=== PATIENT | male | born 1955 | race Caucasian/White ===

== ENCOUNTER 2017-07-09 08:34 | Inpatient (IN) | payer MEDICARE ==
[~2017-07-09] VITALS: Ht 185.4 cm; Wt 90.0 kg
[~2017-07-09 08:34] MED LIST: BACT2OIN TOP; CHOLMIS5 XX; CYCL-36 PO; GLUCTAB PO; HYDR-3580 PO; LISI-363 PO
[2017-07-09 08:49] VITALS: BP 189/93; PULSE 72; RESP 18; TEMP 97.9; O2SAT 99
--- NOTE | 2017-07-09 08:49 | PD ---
HPI Chief Complaint: Left flank pain Time Seen by Provider: 08:49 Travel History International Travel<30 days: No Contact w/Intl Traveler<30days: No Traveled to known affect area: No History of Present Illness HPI 61-year-old male came to the emergency room with history of left flank pain that started at 730 this morning. Patient says the pain came out of nowhere. He has been nauseous and feels like he has to vomit but has not vomited yet. The pain radiates from the flank towards the left lower quadrant. He has never had this kind of pain before. No history of kidney stones in the past. No history of hematuria. Vital signs were relatively stable. FORMERLY [facility] Past Medical History Narrative Medical List of his past medical, surgical, social and family history is reviewed from the nursing note. Cancer: Yes (MELANOMA) Cardiac Catheterization: Yes Coronary Artery Disease: Yes Diabetes: Yes Diminished Hearing: No Diverticulitis: Yes Hypertension: Yes Immunizations Current: Yes Past Surgical History Abdominal Surgery: Yes Cardiac Surgery: Yes (cardiac stents) Coronary Stent: Yes (2) Joint Replacement: Yes Other Surgery: Yes (LEFT ANKLE PLATE/RIGHT HUMERUS ARTHOSCOPY/LYMPH NODE BX ( AXILLARY)) Social History Alcohol Use: Yes (occasionally) Tobacco Use: No Substance Use: No Allergies-Medications (Allergen,Severity, Reaction): Coded Allergies: iodine (Unverified Allergy, Severe, 07/09/17) naproxen (Unverified Allergy, Severe, 07/09/17) potassium iodide (Unverified Allergy, Severe, 07/09/17) povidone-iodine (Unverified Allergy, Severe, 07/09/17) shellfish derived (Unverified Allergy, Severe, 07/09/17) sodium iodide (Unverified Allergy, Severe, 07/09/17) sodium iodide (Unverified Allergy, Severe, 07/09/17) Comments List of his allergies reviewed from the nursing note. Reported Meds & Prescriptions Reported Meds & Active Scripts Active Reported Metformin (Metformin HCl) 500 Mg Tab 500 Mg PO DAILY With a meal Lisinopril 5 Mg Tab 5 Mg PO DAILY Narrative Medication List of his home medications reviewed from the nursing note. Review of Systems Except as stated in HPI: all other systems reviewed are Neg Genitourinary: Positive: Flank Pain Physical Exam Narrative GENERAL: Awake, alert, moderate distress SKIN: Focused skin assessment warm/dry. HEAD: Atraumatic. Normocephalic. EYES: Pupils equal and round. No scleral icterus. No injection or drainage. ENT: No nasal bleeding or discharge. Mucous membranes pink and moist. NECK: Trachea midline. No JVD. CARDIOVASCULAR: Regular rate and rhythm. No murmur appreciated. RESPIRATORY: No accessory muscle use. Clear to auscultation. Breath sounds equal bilaterally. GASTROINTESTINAL: Abdomen soft, non-tender, nondistended. Hepatic and splenic margins not palpable. MUSCULOSKELETAL: No obvious deformities. No clubbing. No cyanosis. No edema. NEUROLOGICAL: Awake and alert. No obvious cranial nerve deficits. Motor grossly within normal limits. Normal speech. PSYCHIATRIC: Appropriate mood and affect; insight and judgment normal. Data Data Last Documented VS Orders Orders Complete Blood Count With Diff (07/09/17 08:59) Comprehensive Metabolic Panel (07/09/17 08:59) Urinalysis - C+S If Indicated (07/09/17 08:59) Ct Abd/Pel W/O Iv Contrast (07/09/17 08:59) Ecg Monitoring (07/09/17 08:59) Iv Access Insert/Monitor (07/09/17 08:59) Ondansetron Inj (Zofran Inj) (07/09/17 09:00) Sodium Chloride 0.9% Flush (Ns Flush) (07/09/17 09:00) Sodium Chlor 0.9% 1000 Ml Inj (Ns 1000 M (07/09/17 08:59) Morphine Inj (Morphine Inj) (07/09/17 09:00) Morphine Inj (Morphine Inj) (07/09/17 10:45) Admit Order (Ed Use Only) (07/09/17 10:51) Labs Laboratory Tests Test 07/09/17 09:00 07/09/17 09:10 Urine Color YELLOW Urine Turbidity CLEAR Urine pH 5.5 Urine Specific [place] 1.026 Urine Protein 30 mg/dL Urine Glucose (UA) NEG mg/dL Urine Ketones NEG mg/dL Urine Occult Blood MOD Urine Nitrite NEG Urine Bilirubin NEG Urine Urobilinogen LESS THAN 2.0 MG/DL Urine Leukocyte Esterase NEG Urine RBC 21 /hpf Urine WBC 4 /hpf Urine Mucus FEW /lpf Microscopic Urinalysis Comment CULT NOT INDICATED White Blood Count 7.8 TH/MM3 Red Blood Count 5.36 MIL/MM3 Hemoglobin 16.6 GM/DL Hematocrit 47.1 % Mean Corpuscular Volume 88.0 FL Mean Corpuscular Hemoglobin 31.0 PG Mean Corpuscular Hemoglobin Concent 35.3 % Red Cell Distribution Width 13.3 % Platelet Count 312 TH/MM3 Mean Platelet Volume 7.5 FL Neutrophils (%) (Auto) 61.1 % Lymphocytes (%) (Auto) 24.9 % Monocytes (%) (Auto) 12.1 % Eosinophils (%) (Auto) 1.3 % Basophils (%) (Auto) 0.6 % Neutrophils # (Auto) 4.8 TH/MM3 Lymphocytes # (Auto) 1.9 TH/MM3 Monocytes # (Auto) 0.9 TH/MM3 Eosinophils # (Auto) 0.1 TH/MM3 Basophils # (Auto) 0.0 TH/MM3 CBC Comment DIFF FINAL Differential Comment Blood Urea Nitrogen 17 MG/DL Creatinine 1.34 MG/DL Random Glucose 154 MG/DL Total Protein 8.1 GM/DL Albumin 3.8 GM/DL Calcium Level 9.7 MG/DL Alkaline Phosphatase 54 U/L Aspartate Amino Transf (AST/SGOT) 25 U/L Alanine Aminotransferase (ALT/SGPT) 41 U/L Total Bilirubin 0.7 MG/DL Sodium Level 136 MEQ/L Potassium Level 4.0 MEQ/L Chloride Level 102 MEQ/L Carbon Dioxide Level 27.2 MEQ/L Anion Gap 7 MEQ/L Estimat Glomerular Filtration Rate 54 ML/MIN MDM Medical Decision Making Medical Screen Exam Complete: Yes Emergency Medical Condition: Yes Medical Record Reviewed: Yes Differential Diagnosis Ureteral colic, ureteral calculus, pyelonephritis Narrative Course 10:27 AM blood test results are back and within acceptable limits. UA shows some blood but otherwise negative. CT scan shows a 7 mm calculus in the left proximal ureter with moderate hydronephrosis and hydroureter. I put a call out for the urologist to discuss the case with him. 10:[address] Toribio to call back but I was told that he is in the operating room. At this point I decided to go ahead and admit the patient. The admitting team will consult urology. I discussed this with the patient and he is agreeable to it. His pain has been coming back and I ordered a second dose of pain medication. Procedures EKG Prior to Arrival: No Physician Communication Physician Communication Dr. Toribio Diagnosis Primary Impression: Ureteral colic Additional Impressions: Ureteral stone Hydronephrosis Qualified Codes: N13.2 - Hydronephrosis with renal and ureteral calculous obstruction Admitting Information Admitting Physician Requests: Observation Scripts Tamsulosin (Flomax) 0.4 Mg Cap 0.4 MG PO DAILY, #30 CAP . Prov: Maite Mendoza MD R1 07/10/17 Hydrocodone-Acetaminophen (Pala) 5 Mg-325 Mg Tab 1 TAB PO Q4H Y for PAIN, #10 TAB 0 Refills x Prov: Maite Mendoza MD R1 07/10/17 Loida Paz MD Jul 09, 2017 08:49
[2017-07-09] MEDS ORDERED: SODIUM CHLOR 0.9% 1000 ML INJ 1,000 ML IV ONE (08:59)
[2017-07-09] MEDS ORDERED: LISI-519 PO (08:59)
[2017-07-09] MEDS ORDERED: METF500T PO (08:59)
[2017-07-09] MEDS ORDERED: SODIUM CHLORIDE 0.9% FLUSH 10 ML FLUSH IVF PRN (09:00)
[2017-07-09] MEDS ORDERED: ONDANSETRON HCL 4 MG/2 ML VIAL IV PUSH ONE (09:00)
[2017-07-09] MEDS ORDERED: MORPHINE SULFATE 2 MG/ML INJ IV PUSH ONE ×2 (09:00→10:45)
[2017-07-09 09:45] LABS: AUTOMATED NEUTROPHIL # 4.8 TH/MM3 (1.8-7.7); BASOPHIL % 0.6 % (0.0-2.0); EOSINOPHIL # 0.1 TH/MM3 (0-0.4); EOSINOPHIL % 1.3 % (0.0-4.0); HEMATOCRIT 47.1 % (39.0-51.0); HEMOGLOBIN 16.6 GM/DL (13.0-17.0); LYMPH % 24.9 % (9.0-44.0); LYMPHOCYTE # 1.9 TH/MM3 (1.0-4.8); MEAN CORPUSCULAR HGB CONC 35.3 % (32.0-36.0); MEAN PLATELET VOLUME 7.5 FL (7.0-11.0); MONO % 12.1 % (0.0-8.0); MONOCYTE # 0.9 TH/MM3 (0-0.9); NEUT % 61.1 % (16.0-70.0); PLATELET COUNT 312 TH/MM3 (150-450); RED BLOOD COUNT 5.36 MIL/MM3 (4.50-5.90); RED CELL DISTRIBUTION WIDTH 13.3 % (11.6-17.2); WHITE BLOOD COUNT 7.8 TH/MM3 (4.0-11.0)
[2017-07-09 09:46] LABS: BILIRUBIN, URINE NEG (NEG); BLOOD, URINE MOD (NEG); GLUCOSE,URINE NEG (NEG); KETONE, URINE NEG (NEG); MUCUS URINE FEW /lpf (OCC); NITRITE,URINE NEG (NEG); PH, URINE 5.5 (5.0-8.5); URINE COLOR YELLOW (YELLW/STRAW); URINE LEUKOCYTE ESTERASE NEG (NEG)
[2017-07-09 09:54] VITALS: BP 140/67; PULSE 71; RESP 15; O2SAT 97
[2017-07-09 09:59] LABS: ALBUMIN 3.8 GM/DL (3.4-5.0); AST (GOT) 25 U/L (15-37); BICARBONATE 27.2 MEQ/L (21.0-32.0); BLOOD UREA NITROGEN 17 MG/DL (7-18); CALCIUM 9.7 MG/DL (8.5-10.1); CHLORIDE 102 MEQ/L (98-107); CREATININE 1.34 MG/DL (0.60-1.30); GLOMERULAR FILTRATION RATE 54 ML/MIN (>89); GLUCOSE,RANDOM 154 MG/DL (74-106); SODIUM (NA) 136 MEQ/L (136-145)
[2017-07-09 10:00] LABS: ALT (GPT) 41 U/L (12-78)
[2017-07-09 10:02] LABS: ALKALINE PHOSPHATASE 54 U/L (45-117); TOTAL BILIRUBIN ADULT 0.7 MG/DL (0.2-1.0); TOTAL PROTEIN 8.1 GM/DL (6.4-8.2)
--- NOTE | 2017-07-09 10:05 | RADRPT ---
EXAM DATE/TIME: 07/09/2017 09:15 [place] COMPARISON: No previous studies available for comparison. INDICATIONS : Left flank pain. ORAL CONTRAST: No oral contrast ingested. RADIATION DOSE: 6.97 CTDIvol (mGy) MEDICAL HISTORY : Cardiovascular disease. Diabetes mellitus type 2. Diverticulitis.Hypertension. SURGICAL HISTORY : None. ENCOUNTER: Initial ACUITY: 1 day PAIN SCALE: 7/10 LOCATION: Left flank TECHNIQUE: Volumetric scanning of the abdomen and pelvis was performed. Using automated exposure control and ad justment of the mA and/or kV according to patient size, radiation dose was kept as low as reasonably achievable to obtain optimal diagnostic quality images. DICOM format image data is available electro nically for review and comparison. FINDINGS: LOWER LUNGS: The visualized lower lungs are clear. LIVER: Homogeneous density without lesion. There is no dilation of the biliary tree. No calcified gallston es. SPLEEN: Normal size without lesion. PANCREAS: Within normal limits. KIDNEYS: There is a 7 mm calcified calculus in the proximal left ureter with resultant mild to moderate left-s ided hydroureteronephrosis. No additional radiopaque renal calculi are demonstrated. Right kidney is unremarkable. There are no contour deforming abnormalities. ADRENAL GLANDS: 1.2 cm left adrenal mass with low density consistent with adrenal adenoma. VASCULAR: There is no aortic aneurysm. BOWEL/MESENTERY: The stomach, small bowel, and colon demonstrate no acute abnormality. Surgical suture line at the rosalio cending sigmoid colon junction. There is no free intraperitoneal air or fluid. ABDOMINAL WALL: Postsurgical features of abdominal wall mesh repair. RETROPERITONEUM: There is no lymphadenopathy. BLADDER: No wall thickening or mass. REPRODUCTIVE: Within normal limits. INGUINAL: Small left inguinal fat containing hernia. MUSCULOSKELETAL: Within normal limits for patient age. CONCLUSION: 1. 7 mm calcified calculus in the proximal left ureter with resultant mild to moderate left-sided hyd roureteronephrosis. 2. 1.2 cm probable left adrenal adenoma. Cali Penaloza MD on July 09, 2017 at 9:32 Board Certified Radiologist. This report was verified electronically.
[2017-07-09] MEDS ORDERED: SODIUM CHLORIDE 0.9% FLUSH 10 ML FLUSH IV FLUSH SCH (11:00)
[2017-07-09] MEDS ORDERED: SODIUM CHLORIDE 0.9% FLUSH 10 ML FLUSH IV FLUSH PRN ×2 (11:00→13:15)
--- NOTE | 2017-07-09 12:39 | HHI.HP ---
HPI Service Family Medicine Primary Care Physician No Primary Care Physician Admission Diagnosis Ureteral calculus, ureteral colic, hydronephrosis Diagnoses: International Travel<30 Days: No Contact w/Intl Traveler<30days: No Known Affected Area: No History of Present Illness Mr. Allen is a 61 year-old male presenting to the ED with left flank pain. Patient states he woke up at 0700 with 10/10 sharp left-sided flank pain that radiated to his back. He describes his pain as the worst pain of his life and a pain that he has never experienced before. Currently the pain is now radiating down the front of his abdomen to the pelvis. Initially he thought it could have been related to an issue with his colon resection occur many years ago. He also endorsed nausea with this pain but denies any vomiting or diarrhea. Currently he cirrhosis pain at a 5/10 after receiving morphine in the ED. Since arriving in the ED has urinated once without blood, dysuria, or visible stone. He denies any history of UTI or kidney stones. Patient states he has had nothing to eat since 1000 last night. Otherwise he has no complaints and denies any fevers, chills, shortness of breath, chest pain, or calf tenderness. (Yasir Alvarez MD R2) Review of Systems Constitutional: DENIES: Fever, Chills Eyes: DENIES: Blurred vision, Double Vision Ears, nose, mouth, throat: DENIES: Throat pain, Running Nose Respiratory: DENIES: Cough, Shortness of breath Cardiovascular: DENIES: Chest pain, Syncope Gastrointestinal: COMPLAINS OF: Abdominal pain, Nausea, DENIES: Diarrhea, Vomiting Genitourinary: DENIES: Urinary frequency, Urgency, Hematuria, Dysuria, Testicular Pain Musculoskeletal: DENIES: Muscle aches Integumentary: DENIES: Rash Hematologic/lymphatic: DENIES: Lymphadenopathy Immunologic/allergic: DENIES: Urticaria Neurologic: DENIES: Headache Psychiatric: DENIES: Mood changes (Yasir Alvarez MD R2) Past Family Social History Past Medical History T2DM HTN Melanoma Diverticulitis CAD with HPLD Past Surgical History 2 cardiac stens C spine surgery R knee replacement Colectomy for diverticulitis R rotator cuff surgeries (Yasir Alvarez MD R2) Allergies: Coded Allergies: iodine (Unverified Allergy, Severe, 07/09/17) naproxen (Unverified Allergy, Severe, 07/09/17) potassium iodide (Unverified Allergy, Severe, 07/09/17) povidone-iodine (Unverified Allergy, Severe, 07/09/17) shellfish derived (Unverified Allergy, Severe, 07/09/17) sodium iodide (Unverified Allergy, Severe, 07/09/17) sodium iodide (Unverified Allergy, Severe, 07/09/17) Family History Father - unknown Mother - healthy living Son - healthy and living Social History 1 ppd for 30yr couple days a week 2-3 per night (Yasir Alvarez MD R2) Physical Exam Vital Signs Vital Signs Date Time Temp Pulse Resp B/P (MAP) Pulse Ox O2 Delivery O2 Flow Rate FiO2 07/09/17 09:54 71 15 140/67 (91) 97 Room Air 07/09/17 08:49 97.9 72 18 189/93 (125) 99 Physical Exam GENERAL: Well-nourished, well-developed male lying in bed in no acute distress. Patient's son and his significant other at bedside. SKIN: Warm and dry. No rash. HEENT: Atraumatic, normocephalic with extraocular motions intact. No rhinorrhea. No thyroid abnormality, lymphadenopathy, or jugulovenous distension appreciated. CARDIOVASCULAR: Regular rate and rhythm without obvious murmurs, gallops, or rubs. 2+ pulses in all four extremities. RESPIRATORY: Clear to auscultation bilaterally with no crackles, wheezes, or rhonchi. No increased work of breathing. GASTROINTESTINAL: Abdomen soft and nondistended with positive bowel sounds. Patient tender to the left lower quadrant. No masses appreciated. MUSCULOSKELETAL: No cyanosis or edema. No calf tenderness. Negative bilateral CVA tenderness NEURO/PSYCH: Afocal. Awake, alert, and oriented x3. Normal speech and judgement. Laboratory Laboratory Tests Test 07/09/17 09:00 07/09/17 09:10 Urine Color YELLOW Urine Turbidity CLEAR Urine pH 5.5 Urine Specific [place] 1.026 Urine Protein 30 Urine Glucose (UA) NEG Urine Ketones NEG Urine Occult Blood MOD Urine Nitrite NEG Urine Bilirubin NEG Urine Urobilinogen LESS THAN 2.0 Urine Leukocyte Esterase NEG Urine RBC 21 Urine WBC 4 Urine Mucus FEW Microscopic Urinalysis Comment CULT NOT INDICATED White Blood Count 7.8 Red Blood Count 5.36 Hemoglobin 16.6 Hematocrit 47.1 Mean Corpuscular Volume 88.0 Mean Corpuscular Hemoglobin 31.0 Mean Corpuscular Hemoglobin Concent 35.3 Red Cell Distribution Width 13.3 Platelet Count 312 Mean Platelet Volume 7.5 Neutrophils (%) (Auto) 61.1 Lymphocytes (%) (Auto) 24.9 Monocytes (%) (Auto) 12.1 Eosinophils (%) (Auto) 1.3 Basophils (%) (Auto) 0.6 Neutrophils # (Auto) 4.8 Lymphocytes # (Auto) 1.9 Monocytes # (Auto) 0.9 Eosinophils # (Auto) 0.1 Basophils # (Auto) 0.0 CBC Comment DIFF FINAL Differential Comment Blood Urea Nitrogen 17 Creatinine 1.34 Random Glucose 154 Total Protein 8.1 Albumin 3.8 Calcium Level 9.7 Alkaline Phosphatase 54 Aspartate Amino Transf (AST/SGOT) 25 Alanine Aminotransferase (ALT/SGPT) 41 Total Bilirubin 0.7 Sodium Level 136 Potassium Level 4.0 Chloride Level 102 Carbon Dioxide Level 27.2 Anion Gap 7 Estimat Glomerular Filtration Rate 54 (Yasir Alvarez MD R2) Result Diagram: 07/09/17 0910 07/09/17 0910 Imaging Last 72 hours Impressions Abdomen/Pelvis CT 07/09/17 0859 Signed Impressions: Service Date/Time: Sunday, July 09, 2017 09:15 - CONCLUSION: 1. 7 mm calcified calculus in the proximal left ureter with resultant mild to moderate left-sided hydroureteronephrosis. 2. 1.2 cm probable left adrenal adenoma. Cali Penaloza MD (Yasir Alvarez MD R2) Caprini VTE Risk Assessment Caprini VTE Risk Assessment: Mod/High Risk (score >= 2) Caprini Risk Assessment Model Point Value = 1 Point Value = 2 Point Value = 3 Point Value = 5 Age 41-60 Minor surgery BMI > 25 kg/m2 Swollen legs Varicose veins or History of unexplained or recurrent spontaneous Oral contraceptives or hormone replacement Sepsis (< 1 month) Serious lung disease, including pneumonia (< 1 month) Abnormal pulmonary function Acute myocardial infarction Congestive heart failure (< 1 month) History of inflammatory bowel disease Medical patient at bed rest Age 61-74 Arthroscopic surgery Major open surgery (> 45 min) Laparoscopic surgery (> 45 min) Malignancy Confined to bed (> 72 hours) Immobilizing plaster cast Central venous access Age >= 75 History of VTE Family history of VTE Factor V Leiden Prothrombin [id number] Lupus anticoagulant Anticardiolipin antibodies Elevated serum homocysteine Heparin-induced thrombocytopenia Other congenital or acquired thrombophilia Stroke (< 1 month) Elective arthroplasty Hip, pelvis, or leg fracture Acute spinal cord injury (< 1 month) Prophylaxis Regimen Total Risk Factor Score Risk Level Prophylaxis Regimen 0-1 Low Early ambulation 2 Moderate Order ONE of the following: *Sequential Compression Device (SCD) *Heparin 5000 units SQ BID 3-4 Higher Order ONE of the following medications: *Heparin 5000 units SQ TID *Enoxaparin/Lovenox 40 mg SQ daily (WT < 150 kg, CrCl > 30 mL/min) *Enoxaparin/Lovenox 30 mg SQ daily (WT < 150 kg, CrCl > 10-29 mL/min) *Enoxaparin/Lovenox 30 mg SQ BID (WT < 150 kg, CrCl > 30 mL/min) AND/OR *Sequential Compression Device (SCD) 5 or more Highest Order ONE of the following medications: *Heparin 5000 units SQ TID (Preferred with Epidurals) *Enoxaparin/Lovenox 40 mg SQ daily (WT < 150 kg, CrCl > 30 mL/min) *Enoxaparin/Lovenox 30 mg SQ daily (WT < 150 kg, CrCl > 10-29 mL/min) *Enoxaparin/Lovenox 30 mg SQ BID (WT < 150 kg, CrCl > 30 mL/min) AND *Sequential Compression Device (SCD) (Yasir Alvarez MD R2) Assessment and Plan Assessment and Plan Mr. Allen is a 61 y/o M resuming with left-sided flank pain and found to have a ureteral stone on imaging. Code Status DNR Discussed Condition With CAPO Nj MD, Dr., Dr. (Yasir Alvarez MD R2) Attending Attestation THIS CASE WAS DISCUSSED WITH THE RESIDENT PHYSICIANS. I HAVE REVIEWED THE RECORD AND AGREE WITH THE ABOVE NOTE AND PLAN OF CARE WAS DISCUSSED. I HAVE AUTHORIZED THE ORDER FOR ADMISSION TO AN IN-PATIENT STATUS. (Marcelino Olivas MD) Problem List: (1) Ureteral stone ICD Codes: N20.1 - Calculus of ureter Status: Acute Plan: -ABD/Pelvis CT: 7 mm proximal ureteral stone -IV fluids at 1.5 maintenance, normal saline at 190 mL/hour -Strain urine to evaluate for passage of stone particles -Tamsulosin 0.4 mg p.o. daily -Toradol as needed for pain, Morphine for breakthrough pain -Urinalysis with moderate blood and 21 RBC per high-power field, otherwise negative -Urology Consulted for possible ureteral stent, appreciate recommendations -Patient NPO since 07/08/17 at 1000 for possible cystoscopy and ureteral stent (2) Hydronephrosis ICD Codes: N13.30 - Unspecified hydronephrosis Status: Acute Plan: Plan as above (3) Acute renal insufficiency ICD Codes: N28.9 - Disorder of kidney and ureter, unspecified Status: Acute Plan: Likely secondary to obstruction from ureteral stone -IV fluids as above with normal saline at 190 mL/hour -Monitor daily BMP (4) Hypertension ICD Codes: I10 - Essential (primary) hypertension Status: Chronic Plan: -Continue home lisinopril (5) Type 2 diabetes mellitus ICD Codes: E11.9 - Type 2 diabetes mellitus without complications Status: Chronic Plan: -Hold home metformin -SSI per protocol (6) Nutrition, metabolism, and development symptoms ICD Codes: R63.8 - Other symptoms and signs concerning food and fluid intake Status: Acute Plan: -Fluids: NS at 190 ml/hr (1.5 MF) -Diet: NPO for possible procedure -Electrolytes: WNL, continue to monitor -Prophylaxis: Zofran as needed for N/V, constipation protocol, Tylenol as needed for fever, hydroxyzine as needed for insomnia, incentive spirometry, clonidine as needed for BP 180/110 (7) Surgical contraindication to deep vein thrombosis (DVT) prophylaxis ICD Codes: Z53.09 - Procedure and treatment not carried out because of other contraindication Status: Acute Plan: -Hold medical prophylaxis for possible procedure -SCDs (Yasir Alvarez MD R2) Physician Certification 2 Midnight Certification Type: Admission for Inpatient Services Order for Inpatient Services The services are ordered in accordance with Medicare regulations or non- Medicare payer requirements, as applicable. In the case of services not specified as inpatient-only, they are appropriately provided as inpatient services in accordance with the 2-midnight benchmark. Estimated LOS (days): 3 3 days is the estimated time the patient will need to remain in the hospital, assuming treatment plan goals are met and no additional complications. Post-Hospital Plan: Home (Yasir Alvarez MD R2) Problem Qualifiers (1) Hydronephrosis: Qualified Codes: N13.2 - Hydronephrosis with renal and ureteral calculous obstruction (2) Hypertension: Qualified Codes: I10 - Essential (primary) hypertension (3) Type 2 diabetes mellitus: Qualified Codes: E11.9 - Type 2 diabetes mellitus without complications Yasir Alvarez MD R2 Jul 09, 2017 12:39 Marcelino Olivas MD Jul 09, 2017 18:48
[2017-07-09] MEDS ORDERED: GLUCAGON 1 MG/ML VIAL OTHER PRN (12:45)
[2017-07-09] MEDS ORDERED: DEXTROSE 50% IN WATER 50 ML VIAL(D50) IV PUSH PRN (12:45)
[2017-07-09 12:54] VITALS: BP 168/81; PULSE 79; RESP 24; O2SAT 96
[2017-07-09] MEDS ORDERED: BISACODYL 10 MG SUPP RECTAL PRN (13:15)
[2017-07-09] MEDS ORDERED: SENNOSIDES 8.6 MG TAB PO PRN (13:15)
[2017-07-09] MEDS ORDERED: LACTULOSE SYRUP 20 GM/30 ML CUP PO PRN (13:15)
[2017-07-09] MEDS ORDERED: MAGNESIUM HYDROXIDE SUSP 30 ML CUP PO PRN (13:15)
[2017-07-09] MEDS ORDERED: KETOROLAC TROMETHAMINE 30 MG/ML (IVP) VIAL IV PUSH PRN (13:15)
[2017-07-09] MEDS ORDERED: ONDANSETRON HCL 4 MG/2 ML VIAL IVP PRN (13:15)
[2017-07-09] MEDS ORDERED: ACETAMINOPHEN 325 MG TAB PO PRN (13:15)
[2017-07-09] MEDS ORDERED: NALOXONE HCL 0.4 MG/ML AMP IV PUSH PRN (13:15)
[2017-07-09 13:37] VITALS: BP 158/96; PULSE 73; RESP 19; O2SAT 97
[2017-07-09] MEDS: TAMSULOSIN HCL 0.4 MG CAP PO SCH (14:15)
[2017-07-09] MEDS: SODIUM CHLOR 0.9% 1000 ML INJ 1,000 ML IV SCH ×3 (14:15→23:45)
[2017-07-09] MEDS: KETOROLAC TROMETHAMINE 30 MG/ML (IVP) VIAL IV PUSH PRN ×2 (14:15→23:42)
--- NOTE | 2017-07-09 14:59 | HHI.HP ---
HPI Service Family Medicine Primary Care Physician No Primary Care Physician Admission Diagnosis Ureteral calculus, ureteral colic, hydronephrosis Diagnoses: International Travel<30 Days: No Contact w/Intl Traveler<30days: No Known Affected Area: No History of Present Illness 61-year-old male presenting to the emergency department with left flank pain that started immediately upon waking up at 7 AM this morning. He describes it as a sharp, stabbing pain in his left CVA/flank that was constant. He states that he has never had pain like this before. He has noted that the pain has started to radiate down the lateral aspect of his abdomen and into his groin. He denies fevers or chills, he denies dysuria or gross hematuria, he denies overt abdominal pain. He does endorse nausea without vomiting. In the emergency department, imaging was performed that showed a 7 mm calcified calculus in the proximal left ureter with resulting mild to moderate left-sided hydronephrosis. He was given pain medication in the emergency department he states it decreased his pain from a 10/10 down to a 5/10. Review of Systems Constitutional: DENIES: Fever, Chills Endocrine: DENIES: Polyuria Respiratory: DENIES: Cough, Wheezing, Sputum production Cardiovascular: DENIES: Chest pain, Palpitations, Dyspnea on Exertion Gastrointestinal: COMPLAINS OF: Nausea, DENIES: Abdominal pain, Constipation, Diarrhea, Vomiting, Difficulty Swallowing Genitourinary: DENIES: Urinary frequency, Urinary incontinence, Urgency, Hematuria, Dysuria, Testicular Pain, Testicular Swelling Musculoskeletal: DENIES: Joint pain Past Family Social History Past Medical History T2DM HTN Melanoma Diverticulitis CAD with HPLD Past Surgical History 2 cardiac stens C spine surgery R knee replacement Colectomy for diverticulitis R rotator cuff surgeries Allergies: Coded Allergies: iodine (Unverified Allergy, Severe, 07/09/17) naproxen (Unverified Allergy, Severe, 07/09/17) potassium iodide (Unverified Allergy, Severe, 07/09/17) povidone-iodine (Unverified Allergy, Severe, 07/09/17) shellfish derived (Unverified Allergy, Severe, 07/09/17) sodium iodide (Unverified Allergy, Severe, 07/09/17) sodium iodide (Unverified Allergy, Severe, 07/09/17) Family History Father - unknown Mother - healthy living Son - healthy and living Social History 1 ppd for 30yr couple days a week 2-3 per night Physical Exam Vital Signs Vital Signs Date Time Temp Pulse Resp B/P (MAP) Pulse Ox O2 Delivery O2 Flow Rate FiO2 07/09/17 13:37 73 19 158/96 (116) 97 Room Air 07/09/17 12:54 79 24 168/81 (110) 96 Room Air 07/09/17 09:54 71 15 140/67 (91) 97 Room Air 07/09/17 08:49 97.9 72 18 189/93 (125) 99 Physical Exam GENERAL: This is a well-nourished, well-developed patient, in no apparent distress, lying in bed and appears comfortable. SKIN: No rashes, ecchymoses or lesions. Cool and dry. NECK: Trachea midline. No JVD or lymphadenopathy. CARDIOVASCULAR: Tachycardic with regular rhythm and without rubs/murmurs/gallop RESPIRATORY: Clear to auscultation. Breath sounds equal bilaterally. No wheezes , rales, or rhonchi. GASTROINTESTINAL: Abdomen soft, non-tender, nondistended. No obvious hepato- splenomegaly, or palpable masses. No guarding. Mildly tender to firm palpation in the left CVA without overt swelling. MUSCULOSKELETAL: Extremities without clubbing, cyanosis, or edema. NEUROLOGICAL: Awake and alert. Laboratory Laboratory Tests Test 07/09/17 09:00 07/09/17 09:10 Urine Color YELLOW Urine Turbidity CLEAR Urine pH 5.5 Urine Specific [place] 1.026 Urine Protein 30 Urine Glucose (UA) NEG Urine Ketones NEG Urine Occult Blood MOD Urine Nitrite NEG Urine Bilirubin NEG Urine Urobilinogen LESS THAN 2.0 Urine Leukocyte Esterase NEG Urine RBC 21 Urine WBC 4 Urine Mucus FEW Microscopic Urinalysis Comment CULT NOT INDICATED White Blood Count 7.8 Red Blood Count 5.36 Hemoglobin 16.6 Hematocrit 47.1 Mean Corpuscular Volume 88.0 Mean Corpuscular Hemoglobin 31.0 Mean Corpuscular Hemoglobin Concent 35.3 Red Cell Distribution Width 13.3 Platelet Count 312 Mean Platelet Volume 7.5 Neutrophils (%) (Auto) 61.1 Lymphocytes (%) (Auto) 24.9 Monocytes (%) (Auto) 12.1 Eosinophils (%) (Auto) 1.3 Basophils (%) (Auto) 0.6 Neutrophils # (Auto) 4.8 Lymphocytes # (Auto) 1.9 Monocytes # (Auto) 0.9 Eosinophils # (Auto) 0.1 Basophils # (Auto) 0.0 CBC Comment DIFF FINAL Differential Comment Blood Urea Nitrogen 17 Creatinine 1.34 Random Glucose 154 Total Protein 8.1 Albumin 3.8 Calcium Level 9.7 Alkaline Phosphatase 54 Aspartate Amino Transf (AST/SGOT) 25 Alanine Aminotransferase (ALT/SGPT) 41 Total Bilirubin 0.7 Sodium Level 136 Potassium Level 4.0 Chloride Level 102 Carbon Dioxide Level 27.2 Anion Gap 7 Estimat Glomerular Filtration Rate 54 Result Diagram: 07/09/1710 07/09/17 0910 Imaging Last 24 hours Impressions Abdomen/Pelvis CT 07/09/17 0859 Signed Impressions: Service Date/Time: Sunday, July 09, 2017 09:15 - CONCLUSION: 1. 7 mm calcified calculus in the proximal left ureter with resultant mild to moderate left-sided hydroureteronephrosis. 2. 1.2 cm probable left adrenal adenoma. MD Marisel Cortes VTE Risk Assessment Caprini VTE Risk Assessment: No/Low Risk (score <= 1) Caprini Risk Assessment Model Point Value = 1 Point Value = 2 Point Value = 3 Point Value = 5 Age 41-60 Minor surgery BMI > 25 kg/m2 Swollen legs Varicose veins or History of unexplained or recurrent spontaneous Oral contraceptives or hormone replacement Sepsis (< 1 month) Serious lung disease, including pneumonia (< 1 month) Abnormal pulmonary function Acute myocardial infarction Congestive heart failure (< 1 month) History of inflammatory bowel disease Medical patient at bed rest Age 61-74 Arthroscopic surgery Major open surgery (> 45 min) Laparoscopic surgery (> 45 min) Malignancy Confined to bed (> 72 hours) Immobilizing plaster cast Central venous access Age >= 75 History of VTE Family history of VTE Factor V Leiden Prothrombin [id number] Lupus anticoagulant Anticardiolipin antibodies Elevated serum homocysteine Heparin-induced thrombocytopenia Other congenital or acquired thrombophilia Stroke (< 1 month) Elective arthroplasty Hip, pelvis, or leg fracture Acute spinal cord injury (< 1 month) Prophylaxis Regimen Total Risk Factor Score Risk Level Prophylaxis Regimen 0-1 Low Early ambulation 2 Moderate Order ONE of the following: *Sequential Compression Device (SCD) *Heparin 5000 units SQ BID 3-4 Higher Order ONE of the following medications: *Heparin 5000 units SQ TID *Enoxaparin/Lovenox 40 mg SQ daily (WT < 150 kg, CrCl > 30 mL/min) *Enoxaparin/Lovenox 30 mg SQ daily (WT < 150 kg, CrCl > 10-29 mL/min) *Enoxaparin/Lovenox 30 mg SQ BID (WT < 150 kg, CrCl > 30 mL/min) AND/OR *Sequential Compression Device (SCD) 5 or more Highest Order ONE of the following medications: *Heparin 5000 units SQ TID (Preferred with Epidurals) *Enoxaparin/Lovenox 40 mg SQ daily (WT < 150 kg, CrCl > 30 mL/min) *Enoxaparin/Lovenox 30 mg SQ daily (WT < 150 kg, CrCl > 10-29 mL/min) *Enoxaparin/Lovenox 30 mg SQ BID (WT < 150 kg, CrCl > 30 mL/min) AND *Sequential Compression Device (SCD) Assessment and Plan Assessment and Plan 61-year-old male presenting to the emergency department with nephrolithiasis and urinary obstruction/hydronephrosis Problem List: (1) Hydronephrosis ICD Codes: N13.30 - Unspecified hydronephrosis Status: Acute Plan: 7 mm proximal ureteral stone noted on CT of the abdomen/pelvis Patient to be kept n.p.o. until urology evaluation for possible cystoscopy and ureteral stent IV fluids at 1.5 maintenance, normal saline at 190 mL/hour -Strain urine to evaluate for passage of stone particles Started on tamsulosin 0.4 mg p.o. daily Pain control: Toradol 30 mg every 6 hours as needed morphine 4 mg every 3 hours as needed for breakthrough pain (2) Ureteral stone ICD Codes: N20.1 - Calculus of ureter Status: Acute Plan: Urinalysis with moderate blood and 21 RBC per high-power field -No leukocyte esterase, nitrites, or elevated urine WBCs to indicate infection -We will hold off on antibiotics until evaluation by urology Treatment plan as above with urology consult and pain control (3) Acute renal insufficiency ICD Codes: N28.9 - Disorder of kidney and ureter, unspecified Status: Acute Plan: Secondary to obstruction from ureteral stone IV fluids as above with normal saline at 190 mL/hour -Monitor daily BMP Urology consult with for cystoscopy and possible ureteral stent placement (4) Type 2 diabetes mellitus ICD Codes: E11.9 - Type 2 diabetes mellitus without complications Status: Chronic Plan: Hold home metformin and cover with sliding scale insulin when patient has a diet (5) Hypertension ICD Codes: I10 - Essential (primary) hypertension Status: Chronic Plan: Continue home medications (6) Nutrition, metabolism, and development symptoms ICD Codes: R63.8 - Other symptoms and signs concerning food and fluid intake Plan: Patient n.p.o. until urology evaluation IV fluids as above Monitor electrolytes and replenish as needed Physician Certification 2 Midnight Certification Type: Admission for Inpatient Services Order for Inpatient Services The services are ordered in accordance with Medicare regulations or non- Medicare payer requirements, as applicable. In the case of services not specified as inpatient-only, they are appropriately provided as inpatient services in accordance with the 2-midnight benchmark. Estimated LOS (days): 2 2 days is the estimated time the patient will need to remain in the hospital, assuming treatment plan goals are met and no additional complications. Post-Hospital Plan: Not yet determined Problem Qualifiers (1) Hydronephrosis: Qualified Codes: N13.2 - Hydronephrosis with renal and ureteral calculous obstruction (2) Type 2 diabetes mellitus: Qualified Codes: E11.9 - Type 2 diabetes mellitus without complications (3) Hypertension: Qualified Codes: I10 - Essential (primary) hypertension Marcelino Olivas MD Jul 09, 2017 14:59
[2017-07-09] MEDS ORDERED: cloNIDine HCL 0.1 MG TAB PO PRN (16:30)
[2017-07-09 16:40] VITALS: BP 142/74; PULSE 61; RESP 18; TEMP 97.6; O2SAT 98
[2017-07-09] MEDS: MORPHINE SULFATE 4 MG/ML INJ IV PUSH PRN (16:40)
[2017-07-09] MEDS: INSULIN ASPART SUPPLEMENTAL SCALE SQ SCH ×2 (17:00→20:36)
--- NOTE | 2017-07-09 17:42 | MB ---
cc: DAVID SORENSON DATE OF CONSULTATION 07/09/2017 HISTORY OF THE PRESENT ILLNESS This is a pleasant 61-year-old male presented with left-sided flank pain. The patient on presentation to the ER underwent a CT scan demonstrating an 8-9 mm proximal left ureteral stone with mild to moderate hydronephrosis. He denies any prior history of stones or urinary tract infections. He denies any fevers or chills, chest pain or shortness of breath. PAST MEDICAL HISTORY His medical history includes: 1. Hypertension. 2. Diabetes. 3. Melanoma. 4. Diverticulitis. 5. Heart disease. 6. Hyperlipidemia. PAST SURGICAL HISTORY Notable for: 1. Cardiac stent insertion x2. 2. C-spine surgery. 3. Right knee replacement. 4. Colectomy for diverticulitis. 5. Right rotator cuff surgeries. ALLERGIES IODINE, NAPROXEN, POTASSIUM IODINE, SHELL FISH AND SODIUM IODINE. FAMILY HISTORY Denies any family history of prostate cancer. SOCIAL HISTORY One pack a day for 30 years and drinks two times a week two to three drinks. REVIEW OF SYSTEMS He denies chest pain, shortness of breath. Notes left-sided flank pain, abdominal pain. Denies diarrhea, constipation voiding problems, muscle aches, rashes, lymphadenopathy. Denies any headaches, mood changes, shortness of breath or chest pain. Denies throat pain, double vision, fever or chills. Remaining review of systems were reviewed were negative. PHYSICAL EXAMINATION VITAL SIGNS: His present vitals temperature is 97.9, heart rate 73, respiratory rate 19, 158/96. 97% on room air. GENERAL: He is a well-developed, well-nourished 61-year-old male in no acute distress. HEAD, EYES, EARS, NOSE, AND THROAT: Normocephalic, atraumatic. Pupils equal, round, regular, reactive to light. Extraocular movements intact. NECK: Supple. HEART: Regular rate and rhythm. LUNGS: Clear. ABDOMEN: Soft. Nontender, nondistended. There is left CVA tenderness noted. GENITOURINARY: Normal phallus. Testes are descended. EXTREMITIES: Showed no evidence of clubbing, cyanosis or edema. NEUROLOGIC: Cranial nerves II-XII are intact. PSYCHIATRIC: Generalized mood. LABORATORY DATA White count 7.8, hemoglobin 16.6, hematocrit 47.1, platelet count of 312. Sodium 136, potassium 4.0, chloride 102, CO2 27.2, BUN is 17. Creatinine is 1.34. Glucose of 154. Urinalysis shows moderate blood, 21 red cells, 4 white cells. IMAGING Again imaging study shows mild to moderate left-sided hydronephrosis with 8-9 mm proximal left ureteral stone. ASSESSMENT A 61-year-old male with a proximal left ureteral stone 8-9 mm in size with mild to moderate hydronephrosis. RECOMMENDATIONS Cystoscopy with left double-J stent insertion in the a.m. N.p.o. after midnight. Thank you for the consult and allowing me to participate in the care of this patient. David HARO/KK /4:54 PM /5:22 PM
[2017-07-09 20:00] VITALS: BP 132/65; PULSE 62; RESP 16; TEMP 96.6; O2SAT 97
[2017-07-09] MEDS: SODIUM CHLORIDE 0.9% FLUSH 10 ML FLUSH IV FLUSH SCH (20:23)
[2017-07-09] MEDS: DOCUSATE SODIUM 50 MG/SENNA 8.6 MG TAB PO SCH (20:23)
[2017-07-10 00:35] VITALS: BP 152/85; PULSE 60; RESP 16; TEMP 96; O2SAT 98
[2017-07-10] MEDS: MORPHINE SULFATE 4 MG/ML INJ IV PUSH PRN ×2 (00:36→08:02)
[2017-07-10] MEDS: SODIUM CHLOR 0.9% 1000 ML INJ 1,000 ML IV SCH ×2 (05:37→10:32)
[2017-07-10] MEDS: KETOROLAC TROMETHAMINE 30 MG/ML (IVP) VIAL IV PUSH PRN (06:03)
[2017-07-10 06:21] LABS: AUTOMATED NEUTROPHIL # 3.5 TH/MM3 (1.8-7.7); BASOPHIL % 0.5 % (0.0-2.0); EOSINOPHIL # 0.2 TH/MM3 (0-0.4); EOSINOPHIL % 2.3 % (0.0-4.0); HEMATOCRIT 39.6 % (39.0-51.0); HEMOGLOBIN 13.8 GM/DL (13.0-17.0); LYMPH % 36.7 % (9.0-44.0); LYMPHOCYTE # 2.6 TH/MM3 (1.0-4.8); MEAN CELL VOLUME 88.1 FL (80.0-100.0); MEAN CORPUSCULAR HEMOGLOBIN 30.8 PG (27.0-34.0); MEAN PLATELET VOLUME 7.3 FL (7.0-11.0); MONO % 11.6 % (0.0-8.0); MONOCYTE # 0.8 TH/MM3 (0-0.9); NEUT % 48.9 % (16.0-70.0); PLATELET COUNT 242 TH/MM3 (150-450); RED BLOOD COUNT 4.49 MIL/MM3 (4.50-5.90); RED CELL DISTRIBUTION WIDTH 12.9 % (11.6-17.2); WHITE BLOOD COUNT 7.1 TH/MM3 (4.0-11.0)
[2017-07-10 06:52] LABS: ALBUMIN 2.9 GM/DL (3.4-5.0); ALKALINE PHOSPHATASE 44 U/L (45-117); ALT (GPT) 29 U/L (12-78); AST (GOT) 14 U/L (15-37); BICARBONATE 28.2 MEQ/L (21.0-32.0); BLOOD UREA NITROGEN 16 MG/DL (7-18); CALCIUM 8.9 MG/DL (8.5-10.1); CHLORIDE 108 MEQ/L (98-107); GLOMERULAR FILTRATION RATE 76 ML/MIN (>89); GLUCOSE,RANDOM 105 MG/DL (74-106); SODIUM (NA) 141 MEQ/L (136-145); TOTAL BILIRUBIN ADULT 0.3 MG/DL (0.2-1.0); TOTAL PROTEIN 6.3 GM/DL (6.4-8.2)
[2017-07-10 08:00] VITALS: BP 137/81; PULSE 68; RESP 15; TEMP 97.1; O2SAT 98
[2017-07-10] MEDS: INSULIN ASPART SUPPLEMENTAL SCALE SQ SCH ×3 (08:00→17:00)
[2017-07-10] MEDS: SODIUM CHLORIDE 0.9% FLUSH 10 ML FLUSH IV FLUSH SCH (08:02)
[2017-07-10] MEDS: TAMSULOSIN HCL 0.4 MG CAP PO SCH (08:02)
[2017-07-10] MEDS: DOCUSATE SODIUM 50 MG/SENNA 8.6 MG TAB PO SCH (08:02)
[2017-07-10] MEDS ORDERED: LISINOPRIL 5 MG TAB PO SCH (09:00)
--- NOTE | 2017-07-10 10:54 | EKG ---
Date Performed: 07/10/2017 Time Performed: 07:06:10 PTAGE: 61 years EKG: SINUS BRADYCARDIA SEPTAL MYOCARDIAL INFARCTION , OF INDETERMINATE AGE INFERIOR MYOCARDIAL I NFARCTION , PROBABLY OLD ABNORMAL ECG NO PREVIOUS TRACING DOCTOR: Hubert Dhillon Interpretating Date/Time 07/10/2017 10:51:56
[2017-07-10 12:00] VITALS: BP 135/78; PULSE 65; RESP 16; TEMP 96.7; O2SAT 98
[2017-07-10] MEDS ORDERED: ePHEDrine/NS 25 MG/5 ML SYRINGE IV ONE (12:00)
[2017-07-10] MEDS ORDERED: DEXAMETHASONE SOD PHOS 4 MG/ML VIAL IV ONE (12:00)
[2017-07-10] MEDS ORDERED: KETOROLAC TROMETHAMINE 30 MG/ML (IVP) VIAL IV PUSH ONE (12:00)
[2017-07-10] MEDS ORDERED: PROPOFOL 200 MG/20 ML AMP IV ONE (12:00)
[2017-07-10] MEDS ORDERED: GLYCOPYRROLATE 1 MG/5 ML SYRINGE IV PUSH ONE (12:00)
[2017-07-10] MEDS ORDERED: ONDANSETRON HCL 4 MG/2 ML VIAL IV ONE (12:00)
[2017-07-10] MEDS ORDERED: PHENYLEPH/NS 1000 MCG/10 ML SYR IV ONE (12:00)
--- NOTE | 2017-07-10 12:01 | HHI.FPPN ---
Objective Vitals Vital Signs Date Time Temp Pulse Resp B/P (MAP) Pulse Ox O2 Delivery O2 Flow Rate FiO2 07/10/17 08:00 97.1 68 15 137/81 (99) 98 07/10/17 00:35 96.0 60 16 152/85 (107) 98 07/09/17 20:00 96.6 62 16 132/65 (87) 97 07/09/17 16:40 97.6 61 18 142/74 (96) 98 07/09/17 15:52 07/09/17 13:37 73 19 158/96 (116) 97 Room Air 07/09/17 12:54 79 24 168/81 (110) 96 Room Air I/O 07/09/17 07/09/17 07/09/17 07/10/17 07/10/17 07/10/17 06:59 14:59 22:59 06:59 14:59 22:59 Intake Total 1000 ml 1000 ml 1000 ml Output Total 750 ml 800 ml Balance 250 ml 1000 ml 200 ml Intake IV Total 1000 ml 1000 ml 1000 ml Output Urine Total 750 ml 800 ml # Voids 1 Result Diagram: 07/10/17 0604 07/10/17 0604 A/P Assessment and Plan Mr. Allen is a 61 y/o M resuming with left-sided flank pain and found to have a ureteral stone on imaging. Problem List: (1) Ureteral stone ICD Codes: N20.1 - Calculus of ureter Status: Acute Plan: -ABD/Pelvis CT: 7 mm proximal ureteral stone -IV fluids at 1.5 maintenance, normal saline at 190 mL/hour -Strain urine to evaluate for passage of stone particles -Tamsulosin 0.4 mg p.o. daily -Toradol as needed for pain, Morphine for breakthrough pain -Urinalysis with moderate blood and 21 RBC per high-power field, otherwise negative -Urology Consulted for possible ureteral stent, appreciate recommendations -Patient NPO since 07/08/17 at 1000 for possible cystoscopy and ureteral stent (2) Hydronephrosis ICD Codes: N13.30 - Unspecified hydronephrosis Status: Acute Plan: Plan as above (3) Acute renal insufficiency ICD Codes: N28.9 - Disorder of kidney and ureter, unspecified Status: Acute Plan: Likely secondary to obstruction from ureteral stone -IV fluids as above with normal saline at 190 mL/hour -Monitor daily BMP (4) Hypertension ICD Codes: I10 - Essential (primary) hypertension Status: Chronic Plan: -Continue home lisinopril (5) Type 2 diabetes mellitus ICD Codes: E11.9 - Type 2 diabetes mellitus without complications Status: Chronic Plan: -Hold home metformin -SSI per protocol (6) Nutrition, metabolism, and development symptoms ICD Codes: R63.8 - Other symptoms and signs concerning food and fluid intake Status: Acute Plan: -Fluids: NS at 190 ml/hr (1.5 MF) -Diet: NPO for possible procedure -Electrolytes: WNL, continue to monitor -Prophylaxis: Zofran as needed for N/V, constipation protocol, Tylenol as needed for fever, hydroxyzine as needed for insomnia, incentive spirometry, clonidine as needed for BP 180/110 (7) Surgical contraindication to deep vein thrombosis (DVT) prophylaxis ICD Codes: Z53.09 - Procedure and treatment not carried out because of other contraindication Status: Acute Plan: -Hold medical prophylaxis for possible procedure -SCDs Problem Qualifiers (1) Hydronephrosis: Qualified Codes: N13.2 - Hydronephrosis with renal and ureteral calculous obstruction (2) Hypertension: Qualified Codes: I10 - Essential (primary) hypertension (3) Type 2 diabetes mellitus: Qualified Codes: E11.9 - Type 2 diabetes mellitus without complications Maite Mendoza MD R1 Jul 10, 2017 12:01
--- NOTE | 2017-07-10 12:29 | HHI.FPPN ---
Subjective Remarks Patient seen and examined this morning by medical team. No acute events overnight. Patient states he is >75% better with Toradol and IV fluids. He is scheduled for his urethral stent placement today and hopes to be discharged afterward. Otherwise he has no complaints and denies any new fevers, chills, SOB , chest pain, NVD, ABD pain, or calf tenderness. (Yasir Alvarez MD R2) Objective Vitals Vital Signs Date Time Temp Pulse Resp B/P (MAP) Pulse Ox O2 Delivery O2 Flow Rate FiO2 07/10/17 12:00 96.7 65 16 135/78 (97) 98 07/10/17 08:00 97.1 68 15 137/81 (99) 98 07/10/17 00:35 96.0 60 16 152/85 (107) 98 07/09/17 20:00 96.6 62 16 132/65 (87) 97 07/09/17 16:40 97.6 61 18 142/74 (96) 98 07/09/17 15:52 07/09/17 13:37 73 19 158/96 (116) 97 Room Air 07/09/17 12:54 79 24 168/81 (110) 96 Room Air I/O 07/09/17 07/09/17 07/09/17 07/10/17 07/10/17 07/10/17 07:00 15:00 23:00 07:00 15:00 23:00 Intake Total 1000 ml 1000 ml 1000 ml Output Total 750 ml 800 ml Balance 250 ml 1000 ml 200 ml Intake IV Total 1000 ml 1000 ml 1000 ml Output Urine Total 750 ml 800 ml # Voids 1 (Yasir Alvarez MD R2) Result Diagram: 07/10/17 0604 07/10/17 0604 Objective Remarks GENERAL: Well-nourished, well-developed male sitting in his recliner in no acute distress. SKIN: Warm and dry. No rash. HEENT: Atraumatic, normocephalic with extraocular motions intact. No rhinorrhea. No visible LAD or JVD appreciated. CARDIOVASCULAR: Regular rate and rhythm without obvious murmurs, gallops, or rubs. 2+ pulses in all four extremities. RESPIRATORY: Clear to auscultation bilaterally with no crackles, wheezes, or rhonchi. No increased work of breathing. GASTROINTESTINAL: Abdomen soft and nondistended with positive bowel sounds. Patient tender to the left lower quadrant, improved from prior exam. No masses appreciated. MUSCULOSKELETAL: No cyanosis or edema. No calf tenderness. Negative bilateral CVA tenderness NEURO/PSYCH: Afocal. Awake, alert, and oriented x3. Normal speech and judgement. (Yasir Alvarez MD R2) A/P Assessment and Plan Mr. Allen is a 61 y/o M resuming with left-sided flank pain and found to have a ureteral stone on imaging. Discharge Planning Pending ureteral stent placement. Patient will need to tolerate PO diet as well as pass voiding trial. (Yasir Alvarez MD R2) Attending Attestation Pt. examined and case discussed with resident physicians. I have read the above note and agree with the assessment and plan as discussed with me. I was involved in all medical decision making for this patient. Marcelino Olivas MD (Marcelino Olivas MD) Problem List: (1) Ureteral stone ICD Codes: N20.1 - Calculus of ureter Status: Acute Plan: -ABD/Pelvis CT: 7 mm proximal ureteral stone -IV fluids at 1.5 maintenance, normal saline at 190 mL/hour -Strain urine to evaluate for passage of stone particles -Tamsulosin 0.4 mg p.o. daily -Toradol as needed for pain, Morphine for breakthrough pain -Urinalysis with moderate blood and 21 RBC per high-power field, otherwise negative -Urology Consulted for possible ureteral stent, appreciate recommendations -Patient NPO since 07/08/17 at 1000 for possible cystoscopy and ureteral stent (2) Hydronephrosis ICD Codes: N13.30 - Unspecified hydronephrosis Status: Acute Plan: Plan as above (3) Acute renal insufficiency ICD Codes: N28.9 - Disorder of kidney and ureter, unspecified Status: Resolved Plan: Likely secondary to obstruction from ureteral stone, resolved with aggressive IV fluid hydration -IV fluids as above with normal saline at 190 mL/hour -Monitor daily BMP (4) Hypertension ICD Codes: I10 - Essential (primary) hypertension Status: Chronic Plan: -Continue home lisinopril (5) Type 2 diabetes mellitus ICD Codes: E11.9 - Type 2 diabetes mellitus without complications Status: Chronic Plan: -Hold home metformin -SSI per protocol (6) Nutrition, metabolism, and development symptoms ICD Codes: R63.8 - Other symptoms and signs concerning food and fluid intake Status: Acute Plan: -Fluids: NS at 190 ml/hr (1.5 MF) -Diet: NPO for possible procedure, diabetic diet after procedure -Electrolytes: WNL, continue to monitor -Prophylaxis: Zofran as needed for N/V, constipation protocol, Tylenol as needed for fever, hydroxyzine as needed for insomnia, incentive spirometry, clonidine as needed for BP 180/110 (7) Surgical contraindication to deep vein thrombosis (DVT) prophylaxis ICD Codes: Z53.09 - Procedure and treatment not carried out because of other contraindication Status: Acute Plan: -Hold medical prophylaxis for possible procedure -SCDs (Yasir Alvarez MD R2) Problem Qualifiers (1) Hydronephrosis: Qualified Codes: N13.2 - Hydronephrosis with renal and ureteral calculous obstruction (2) Hypertension: Qualified Codes: I10 - Essential (primary) hypertension (3) Type 2 diabetes mellitus: Qualified Codes: E11.9 - Type 2 diabetes mellitus without complications Yasir Alvarez MD R2 Jul 10, 2017 12:29 Marcelino Olivas MD Jul 10, 2017 20:59
[2017-07-10] MEDS ORDERED: ceFAZolin INJ 1,000 MG VIAL ONE (13:55)
[2017-07-10] MEDS ORDERED: SODIUM CHLORIDE 0.9% INJ 100 ML ONE (13:58)
[2017-07-10] MEDS ORDERED: ceFAZolin 1,000 MG/NS 100 ML IV ONE ×2 (14:00)
--- NOTE | 2017-07-10 15:46 | PD.OP ---
Operative Report Date of Surgery: Jul 10, 2017 Preoperative Diagnosis: Left ureteral stone with hydronephrosis Postoperative Diagnosis: Same Procedure: Cystoscopy, left retrograde pyelogram, left double-J stent insertion Anesthesia: Gen. LMA Surgeon: Yosvany Toribio Shot Tube Machine Tender(s): None Resident Surgeon: None Operation and Findings: 61-year-old male who presented with left-sided flank pain yesterday. CT scan was performed in the emergency room demonstrating a 7 mm left proximal stone. Decision made to bring the patient to the operating room to undergo cystoscopy with left double-J stent insertion. Risk and benefits were discussed preoperatively, and he was willing to proceed. The patient was brought to the operating room identified by myself as Joseph Allen. He was placed in the dorsal lithotomy position, prepped and draped in usual sterile fashion, received preprocedure antibiotics, and general LMA anesthesia was administered. 22 Kosovan cystoscope was inserted in the bladder herman cystoscopy did not reveal any abnormalities. A 6 Kosovan Pollack catheter was inserted into the left ureteral orifice and retrograde pyleogram was performed. Stone was identified in the proximal left ureter. The stone was somewhat radiolucent. A 0.35 sensor wire was then inserted into the Pollack catheter and up into the kidney. A 6 Kosovan 24 cm left double-J stent was placed with a good curl in the kidney and the bladder. The bladder was evacuated and the tolerated the procedure well. He will follow-up in a few weeks for scheduling of extracorporeal shockwave lithotripsy to treat his stone. Yosvany Toribio DO Jul 10, 2017 15:46
[2017-07-10] MEDS ORDERED: MIDAZOLAM HCL 2 MG/2 ML VIAL ONE (16:05)
[2017-07-10] MEDS ORDERED: IOHEXOL 350 MG/ML 100 ML BTL (for RAD DIAG) OTHER ONE (16:07)
[2017-07-10] MEDS ORDERED: DO NOT ADM ANY ANTICOAGULANT DRUGS PRN (17:15)
--- NOTE | 2017-07-10 17:17 | HHI.DCPOC ---
Discharge Care Plan Diagnosis: (1) Ureteral stone (2) Hydronephrosis Goals to Promote Your Health * To prevent worsening of your condition and complications * To maintain your health at the optimal level Directions to Meet Your Goals Take your medications as prescribed Follow your dietary instruction Follow activity as directed Keep your appointments as scheduled Take your immunizations and boosters as scheduled If your symptoms worsen call your PCP, if no PCP go to Urgent Care Center or Emergency Room Smoking is Dangerous to Your Health. Avoid second hand smoke Call the 24-hour hour crisis hotline for domestic abuse at Yasir Alvarez MD R2 Jul 10, 2017 17:17
[2017-07-10] MEDS ORDERED: NORC5TAB PO (17:19)
[2017-07-10] MEDS ORDERED: TAMS5CAP PO (17:20)
[2017-07-10 17:25] VITALS: BP 152/74; PULSE 76; RESP 15; TEMP 96.1; O2SAT 97
[2017-07-10] MEDS ORDERED: ACETAMINOPHEN/HYDROcodone 325 MG/5 MG TAB PO ONE (18:00)
== END 2017-07-10 18:35 | disposition home or self-care (01) | DRG 694 ==
LOC: NEPE 08:34 → NEDA 10:52 → N07B 15:51
PROVIDERS: ADMIT Family Medicine; ATTEND Family Medicine
PROC: BT1F1ZZ Fluoroscopy of Left Kidney, Ureter and Bladder using Low Osmolar Contrast (ICD-10-PCS; 2017-07-10)
PROC: 0T778DZ Dilation of Left Ureter with Intraluminal Device, Via Natural or Artificial Opening Endoscopic (ICD-10-PCS; principal; 2017-07-10 14:21)
DX: N13.2 Hydronephrosis with renal and ureteral calculous obstruction (principal); I10 Essential (primary) hypertension; E11.9 Type 2 diabetes mellitus without complications; N28.9 Disorder of kidney and ureter, unspecified; I25.10 Atherosclerotic heart disease of native coronary artery without angina pectoris; F17.210 Nicotine dependence, cigarettes, uncomplicated; E78.5 Hyperlipidemia, unspecified; Z66 Do not resuscitate; Z79.84 Long term (current) use of oral hypoglycemic drugs; Z85.820 Personal history of malignant melanoma of skin; Z96.651 Presence of right artificial knee joint; Z95.5 Presence of coronary angioplasty implant and graft
CPT/HCPCS: 74176; 76000; 80053; 81001; 82948; 85025; 93005; 94150; 96361; 96374; 96375; 96376; J0690; J1100; J1885; J2250; J2270; J2370; J2405; J3010; J7030; Q9967

== ENCOUNTER → 2017-07-24 | Day surgery (SDC) | payer MEDICARE ==
[~2017-07-24] VITALS: Ht 185.4 cm; Wt 90.6 kg
[~2017-07-24] MED LIST changes: +ASPI1TAB57 PO; -BACT2OIN TOP; +CHLORHEXIDINE GLUCONATE 2 % 1 PACK (2 CLOTHS) TOPICAL PRN; -CHOLMIS5 XX; +COQ-50CA2 PO; -CYCL-36 PO; +DO NOT ADM ANY ANTICOAGULANT DRUGS PRN; -GLUCTAB PO; -HYDR-3580 PO; +LACTATED RINGER'S 1000 ML INJ 1,000 ML IV ONE; +LACTATED RINGER'S 1000 ML IV PRN; -LISI-363 PO; +LISI-519 PO; +METF500T PO; +METOPROLOL TARTRATE 25 MG TAB PO PRN; +MIDAZOLAM HCL 2 MG/2 ML VIAL ONE; +MORPHINE SULFATE 2 MG/ML INJ IV PRN; +NORC5TAB PO; +ONDANSETRON HCL 4 MG/2 ML VIAL IV PUSH PRN; +PROPOFOL 200 MG/20 ML AMP IV ONE; +SODIUM CHLORID 0.9% 500 ML IV PRN; +TAMS5CAP PO; +VITA1000 PO; +ceFAZolin 1,000 MG/NS 100 ML IV SCH; +oxyCODONE/ACETAMINOPHEN 5 MG/325 MG TAB PO PRN
--- NOTE | 2017-07-24 07:17 | RADRPT ---
EXAM DATE/TIME: 07/24/2017 06:27 [facility] COMPARISON: CT ABDOMEN & PELVIS W/O CONTRAST, July 09, 2017, 9:15. INDICATIONS : Pre op lithotripsy. MEDICAL HISTORY : None. SURGICAL HISTORY : None. ENCOUNTER: Initial ACUITY: 1 day PAIN SCORE: 0/10 LOCATION: Bilateral abdomen FINDINGS: 2 AP supine views of the abdomen and pelvis were obtained and demonstrate a left double pigtail urete ral stent catheter in place. There is a faint calcification along the proximal left ureter measuring approximately 4-5 mm in size. CONCLUSION: Small calcification along the proximal left ureter. Albert De Anda MD on July 24, 2017 at 7:14 Board Certified Radiologist. This report was verified electronically.
--- NOTE | 2017-07-24 09:20 | MP ---
cc: DAVID SORENSON DATE OF SURGERY 07/24/2017 PREOPERATIVE DIAGNOSIS Left ureteral stone. POSTOPERATIVE DIAGNOSIS Left ureteral stone. PROCEDURE Left extracorporeal shock wave lithotripsy. SURGEON Catarino. ANESTHESIA MAC. FLUIDS 500 cc crystalloid. ESTIMATED BLOOD LOSS No blood loss. COMPLICATIONS No complications. INDICATION FOR PROCEDURE This 61-year-old male presented to the office with findings of a 6 mm proximal left ureteral stone who had a prior cysto with stent insertion. Plan was to undergo a left extracorporeal shock wave lithotripsy. The risks and benefits were discussed preoperatively and he was willing to proceed. DETAILS OF PROCEDURE The patient was brought to the operating room, identified by myself as Joseph Allen. He was placed on the operating table in the supine position, received preprocedure antibiotics, and MAC anesthesia was administered. Under fluoroscopic imaging guidance the stone was localized and then ESWL therapy commenced. The patient received a total of 2250 shocks with good fragmentation of the stone. He did vomit during the procedure but his O2 sats remained in the 90% range. It did not appear that he aspirated. He was awoken and transferred to Recovery in stable condition. Good fragmentation was visualized under fluoroscopy. He will follow-up in the office in 2-4 weeks and will obtain a KUB x-ray prior. David ZAVALAT/BT /8:47 AM /8:57 AM
[2017-07-24 10:00] VITALS: BP 144/76; PULSE 64; RESP 18; TEMP 97.6; O2SAT 99
== END | disposition home or self-care (01) ==
LOC: HSDC 05:52
PROVIDERS: ATTEND Urology
DX: N20.1 Calculus of ureter (principal); E11.9 Type 2 diabetes mellitus without complications; I10 Essential (primary) hypertension; E78.5 Hyperlipidemia, unspecified; I51.9 Heart disease, unspecified; Z85.820 Personal history of malignant melanoma of skin
CPT/HCPCS: 00872; 50590; 74018; J0690; J2250; J7120

== ENCOUNTER 2017-08-16 05:35 | Emergency (ER) | payer MEDICARE ==
[~2017-08-16] VITALS: Ht 185.4 cm; Wt 90.0 kg
[~2017-08-16 05:35] MED LIST changes: -CHLORHEXIDINE GLUCONATE 2 % 1 PACK (2 CLOTHS) TOPICAL PRN; -DO NOT ADM ANY ANTICOAGULANT DRUGS PRN; -LACTATED RINGER'S 1000 ML INJ 1,000 ML IV ONE; -LACTATED RINGER'S 1000 ML IV PRN; -METOPROLOL TARTRATE 25 MG TAB PO PRN; -MIDAZOLAM HCL 2 MG/2 ML VIAL ONE; -MORPHINE SULFATE 2 MG/ML INJ IV PRN; -ONDANSETRON HCL 4 MG/2 ML VIAL IV PUSH PRN; -PROPOFOL 200 MG/20 ML AMP IV ONE; -SODIUM CHLORID 0.9% 500 ML IV PRN; -ceFAZolin 1,000 MG/NS 100 ML IV SCH; -oxyCODONE/ACETAMINOPHEN 5 MG/325 MG TAB PO PRN
[2017-08-16 05:45] VITALS: BP 151/97; PULSE 87; RESP 16; TEMP 98; O2SAT 96
[2017-08-16 05:58] VITALS: RESP 18; O2SAT 96
[2017-08-16 06:14] LABS: AUTOMATED NEUTROPHIL # 10.8 TH/MM3 (1.8-7.7); BASOPHIL # 0.1 TH/MM3 (0-0.2); BASOPHIL % 0.4 % (0.0-2.0); EOSINOPHIL # 0.1 TH/MM3 (0-0.4); EOSINOPHIL % 0.8 % (0.0-4.0); HEMATOCRIT 46.1 % (39.0-51.0); LYMPH % 13.9 % (9.0-44.0); MEAN CELL VOLUME 87.5 FL (80.0-100.0); MEAN CORPUSCULAR HEMOGLOBIN 30.3 PG (27.0-34.0); MEAN CORPUSCULAR HGB CONC 34.7 % (32.0-36.0); MEAN PLATELET VOLUME 7.2 FL (7.0-11.0); MONO % 8.1 % (0.0-8.0); MONOCYTE # 1.1 TH/MM3 (0-0.9); NEUT % 76.8 % (16.0-70.0); PLATELET COUNT 394 TH/MM3 (150-450); RED BLOOD COUNT 5.26 MIL/MM3 (4.50-5.90); RED CELL DISTRIBUTION WIDTH 13.2 % (11.6-17.2)
[2017-08-16 06:17] LABS: BILIRUBIN, URINE NEG (NEG); BLOOD, URINE MOD (NEG); GLUCOSE,URINE NEG (NEG); HYALINE CAST, URINE 2 /lpf (RARE); KETONE, URINE 10 mg/dL (NEG); MUCUS URINE FEW /lpf (OCC); NITRITE,URINE NEG (NEG); SQUAMOUS EPITHELIAL CELL URINE <1 /hpf (0-5); URINE COLOR YELLOW (YELLW/STRAW); URINE LEUKOCYTE ESTERASE SMALL (NEG)
[2017-08-16 06:48] LABS: ALKALINE PHOSPHATASE 55 U/L (45-117); TOTAL BILIRUBIN ADULT 0.5 MG/DL (0.2-1.0); TOTAL PROTEIN 8.2 GM/DL (6.4-8.2)
--- NOTE | 2017-08-16 07:12 | PD ---
HPI Chief Complaint: Abdominal Pain Time Seen by Provider: 06:56 Travel History International Travel<30 days: No Contact w/Intl Traveler<30days: No Traveled to known affect area: No History of Present Illness HPI The patient is a 61-year-old male who presents to the emergency department for generalized abdominal pain. The pain started last night after he ate a pot pie, the abdominal pain is crampy, moderate to severe, and not associated with any nausea, vomiting, or diarrhea. The patient does have a history of similar pain in the past secondary to diverticulitis, underwent previous partial colectomy in [place] in his 20s. The patient recently had a urological procedure by Dr. Toribio to break him a millimeter kidney stone, he states this pain is different. He does continue to have some hematuria from the previous kidney stone. He does have a previous history of partial colectomy and ventral hernia repair with mesh placement. He did have 1 alcoholic drink last night, but denies any history pancreatitis, biliary colic, or gallbladder disease. Symptoms are moderate. There are no current alleviating or exacerbating factors. He denies any associated fever, chills, or sweats. He does not have a primary physician. Last bowel movement was yesterday, normal, has not passed any flatus overnight. PFSH Past Medical History Cancer: Yes (melanoma) Cardiac Catheterization: Yes Cardiovascular Problems: Yes (STENOSIS) Chest Pain: Yes Coronary Artery Disease: Yes Diabetes: Yes (borderline) Patient Takes Glucophage: Yes Diminished Hearing: No Diverticulitis: Yes Endocrine: Yes Gastrointestinal Disorders: Yes (DIVERTICULITIS) Genitourinary: No Hepatitis: No Hiatal Hernia: No Hypertension: Yes Immune Disorder: No Kidney Stones: Yes (CURRENTLY) Musculoskeletal: Yes (OA) Neurologic: Yes (RUPTURED CERVICAL DISK) Psychiatric: No Reproductive: No Respiratory: No Immunizations Current: Yes Thyroid Disease: No Past Surgical History Abdominal Surgery: Yes (colon resection, hernia) AICD: No Body Medical Devices: HARDWARE IN NECK AND SHOULDER AND LEFT ANKLE Cardiac Surgery: Yes (stents) Coronary Stent: Yes (2) Joint Replacement: Yes (RIGHT KNEE) Neurologic Surgery: Yes (CERVICAL FUSION) Pacemaker: No Other Surgery: Yes (LEFT ANKLE PLATE/RIGHT HUMERUS ARTHOSCOPY/LYMPH NODE BX ( AXILLARY)) Social History Alcohol Use: Yes (occasionally) Tobacco Use: No Substance Use: No Allergies-Medications (Allergen,Severity, Reaction): Coded Allergies: iodine (Unverified Allergy, Severe, 08/16/17) naproxen (Unverified Allergy, Severe, 08/16/17) potassium iodide (Unverified Allergy, Severe, 08/16/17) povidone-iodine (Unverified Allergy, Severe, 08/16/17) shellfish derived (Unverified Allergy, Severe, 08/16/17) sodium iodide (Unverified Allergy, Severe, 08/16/17) sodium iodide (Unverified Allergy, Severe, 08/16/17) Reported Meds & Prescriptions Reported Meds & Active Scripts Active Reported Metformin (Metformin HCl) 500 Mg Tab 500 Mg PO DAILY With a meal Lisinopril 5 Mg Tab 5 Mg PO DAILY Review of Systems Except as stated in HPI: all other systems reviewed are Neg General / Constitutional: No: Fever, Chills Cardiovascular: No: Chest Pain or Discomfort Respiratory: No: Shortness of Breath Gastrointestinal: Positive: Abdominal Pain, Other (last bowel movement was yesterday), No: Nausea, Vomiting, Diarrhea, Constipation Genitourinary: Positive: Hematuria Physical Exam Narrative GENERAL: Awake, alert, pleasant 61-year-old male who appears his stated age and is in no acute respiratory distress. SKIN: Focused skin assessment warm/dry. HEAD: Atraumatic. Normocephalic. EYES: Pupils equal and round. No scleral icterus. No injection or drainage. ENT: No nasal bleeding or discharge. Mucous membranes pink and moist. NECK: Trachea midline. No JVD. CARDIOVASCULAR: Regular rate and rhythm. No murmur appreciated. RESPIRATORY: No accessory muscle use. Clear to auscultation. Breath sounds equal bilaterally. GASTROINTESTINAL: Abdomen soft, epigastric to right upper quadrant tenderness. Well-healed scar lower left abdomen. MUSCULOSKELETAL: No obvious deformities. No clubbing. No cyanosis. No edema. NEUROLOGICAL: Awake and alert. No obvious cranial nerve deficits. Motor grossly within normal limits. Normal speech. PSYCHIATRIC: Appropriate mood and affect; insight and judgment normal. Data Data Last Documented VS Vital Signs Date Time Temp Pulse Resp B/P (MAP) Pulse Ox O2 Delivery O2 Flow Rate FiO2 08/16/17 05:58 96 Room Air 08/16/17 05:58 18 08/16/17 05:45 98.0 87 Orders Orders Complete Blood Count With Diff (08/16/17 05:56) Comprehensive Metabolic Panel (08/16/17 05:56) Urinalysis - C+S If Indicated (08/16/17 05:56) Iv Access Insert/Monitor (08/16/17 05:56) Oxygen Administration (08/16/17 05:56) Oximetry (08/16/17 05:56) Lipase (08/16/17 05:56) Urine Culture (08/16/17 06:05) Ct Abd/Pel W/O Iv Contrast (08/16/17 ) Morphine Inj (Morphine Inj) (08/16/17 07:15) Ondansetron Inj (Zofran Inj) (08/16/17 07:15) Us Abdomen Gallbladder (08/16/17 ) Labs Laboratory Tests Test 08/16/17 06:00 08/16/17 06:05 White Blood Count 14.0 TH/MM3 Red Blood Count 5.26 MIL/MM3 Hemoglobin 16.0 GM/DL Hematocrit 46.1 % Mean Corpuscular Volume 87.5 FL Mean Corpuscular Hemoglobin 30.3 PG Mean Corpuscular Hemoglobin Concent 34.7 % Red Cell Distribution Width 13.2 % Platelet Count 394 TH/MM3 Mean Platelet Volume 7.2 FL Neutrophils (%) (Auto) 76.8 % Lymphocytes (%) (Auto) 13.9 % Monocytes (%) (Auto) 8.1 % Eosinophils (%) (Auto) 0.8 % Basophils (%) (Auto) 0.4 % Neutrophils # (Auto) 10.8 TH/MM3 Lymphocytes # (Auto) 2.0 TH/MM3 Monocytes # (Auto) 1.1 TH/MM3 Eosinophils # (Auto) 0.1 TH/MM3 Basophils # (Auto) 0.1 TH/MM3 CBC Comment DIFF FINAL Differential Comment Blood Urea Nitrogen 16 MG/DL Creatinine 1.16 MG/DL Random Glucose 154 MG/DL Total Protein 8.2 GM/DL Albumin 3.8 GM/DL Calcium Level 10.1 MG/DL Alkaline Phosphatase 55 U/L Aspartate Amino Transf (AST/SGOT) 29 U/L Alanine Aminotransferase (ALT/SGPT) 38 U/L Total Bilirubin 0.5 MG/DL Sodium Level 136 MEQ/L Potassium Level 4.4 MEQ/L Chloride Level 100 MEQ/L Carbon Dioxide Level 26.6 MEQ/L Anion Gap 9 MEQ/L Estimat Glomerular Filtration Rate 64 ML/MIN Lipase 102 U/L Urine Color YELLOW Urine Turbidity HAZY Urine pH 7.0 Urine Specific Morris 1.023 Urine Protein 100 mg/dL Urine Glucose (UA) NEG mg/dL Urine Ketones 10 mg/dL Urine Occult Blood MOD Urine Nitrite NEG Urine Bilirubin NEG Urine Urobilinogen 2.0 MG/DL Urine Leukocyte Esterase SMALL Urine RBC /hpf Urine WBC 18 /hpf Urine Squamous Epithelial Cells <1 /hpf Urine Hyaline Casts 2 /lpf Urine Mucus FEW /lpf Microscopic Urinalysis Comment CULTURE INDICATED MDM Medical Decision Making Medical Screen Exam Complete: Yes Emergency Medical Condition: Yes Medical Record Reviewed: Yes Interpretation(s) Laboratory Tests Test 08/16/17 06:00 08/16/17 06:05 White Blood Count 14.0 TH/MM3 Red Blood Count 5.26 MIL/MM3 Hemoglobin 16.0 GM/DL Hematocrit 46.1 % Mean Corpuscular Volume 87.5 FL Mean Corpuscular Hemoglobin 30.3 PG Mean Corpuscular Hemoglobin Concent 34.7 % Red Cell Distribution Width 13.2 % Platelet Count 394 TH/MM3 Mean Platelet Volume 7.2 FL Neutrophils (%) (Auto) 76.8 % Lymphocytes (%) (Auto) 13.9 % Monocytes (%) (Auto) 8.1 % Eosinophils (%) (Auto) 0.8 % Basophils (%) (Auto) 0.4 % Neutrophils # (Auto) 10.8 TH/MM3 Lymphocytes # (Auto) 2.0 TH/MM3 Monocytes # (Auto) 1.1 TH/MM3 Eosinophils # (Auto) 0.1 TH/MM3 Basophils # (Auto) 0.1 TH/MM3 CBC Comment DIFF FINAL Differential Comment Blood Urea Nitrogen 16 MG/DL Creatinine 1.16 MG/DL Random Glucose 154 MG/DL Total Protein 8.2 GM/DL Albumin 3.8 GM/DL Calcium Level 10.1 MG/DL Alkaline Phosphatase 55 U/L Aspartate Amino Transf (AST/SGOT) 29 U/L Alanine Aminotransferase (ALT/SGPT) 38 U/L Total Bilirubin 0.5 MG/DL Sodium Level 136 MEQ/L Potassium Level 4.4 MEQ/L Chloride Level 100 MEQ/L Carbon Dioxide Level 26.6 MEQ/L Anion Gap 9 MEQ/L Estimat Glomerular Filtration Rate 64 ML/MIN Lipase 102 U/L Urine Color YELLOW Urine Turbidity HAZY Urine pH 7.0 Urine Specific Morris 1.023 Urine Protein 100 mg/dL Urine Glucose (UA) NEG mg/dL Urine Ketones 10 mg/dL Urine Occult Blood MOD Urine Nitrite NEG Urine Bilirubin NEG Urine Urobilinogen 2.0 MG/DL Urine Leukocyte Esterase SMALL Urine RBC /hpf Urine WBC 18 /hpf Urine Squamous Epithelial Cells <1 /hpf Urine Hyaline Casts 2 /lpf Urine Mucus FEW /lpf Microscopic Urinalysis Comment CULTURE INDICATED Ultrasound gallbladder reveals mild fatty liver. No gallstones or biliary ductal dilatation. Nonobstructing calcification lower pole right kidney. Differential Diagnosis Differential diagnosis includes partial small bowel obstruction, pancreatitis, gastritis, peptic ulcer disease, biliary colic, choledocholithiasis, cholelithiasis, diverticulitis, viral syndrome. Narrative Course IV was established, labs are drawn and sent, and the patient was placed on cardiac telemetry monitoring and continuous pulse oximetry monitoring. The patient was initially seen by triage nurse, had labs sent. The patient was administered morphine, Zofran, and IV fluids. He will be kept nothing by mouth. CT of the abdomen and pelvis without contrast was ordered as she is allergic to iodine. The patient's white count is mildly elevated. Lipase and LFTs are unremarkable. UA does have innumerable RBCs and 18 WBCs, patient recently had urologic procedure for kidney stone. Ultrasound the gallbladder reveals mild fatty liver but no gallstones or biliary ductal dilatation. Nonobstructing calcification lower pole right kidney, no evidence of gallbladder disease. The patient is stable for outpatient follow-up. Patient Instructions: General Instructions Additional Instructions: Please provide a patient a copy of his CT results, ultrasound results, and lab results at discharge. Follow-up with her primary physician. Clear liquid diet and advance as tolerated. Return if symptoms worsen or progress. Med/Other Pt SpecificInfo: Prescription(s) given Scripts Hydrocodone-Acetaminophen ([place]) 5 Mg-325 Mg Tab 1 TAB PO Q6H Y for PAIN, #10 TAB 0 Refills Prov: Po Reyes MD 08/16/17 Dicyclomine (Bentyl) 10 Mg Cap 10 MG PO TID Y for Bowel Management, #10 CAP 0 Refills Prov: Po Reyes MD 08/16/17 Disposition: 01 DISCHARGE HOME Condition: Stable Po Reyes MD 16, 2018 07:12
[2017-08-16 07:14] LABS: ALBUMIN 3.8 GM/DL (3.4-5.0); ALT (GPT) 38 U/L (12-78); AST (GOT) 29 U/L (15-37); BICARBONATE 26.6 MEQ/L (21.0-32.0); BLOOD UREA NITROGEN 16 MG/DL (7-18); CALCIUM 10.1 MG/DL (8.5-10.1); CHLORIDE 100 MEQ/L (98-107); CREATININE 1.16 MG/DL (0.60-1.30); GLOMERULAR FILTRATION RATE 64 ML/MIN (>89); GLUCOSE,RANDOM 154 MG/DL (74-106); SODIUM (NA) 136 MEQ/L (136-145)
[2017-08-16] MEDS ORDERED: MORPHINE SULFATE 4 MG/ML INJ IV PUSH ONE (07:15)
[2017-08-16] MEDS ORDERED: ONDANSETRON HCL 4 MG/2 ML VIAL IV PUSH ONE (07:15)
--- NOTE | 2017-08-16 08:11 | RADRPT ---
EXAM DATE/TIME: 08/16/2017 07:52 [facility] COMPARISON: CT ABDOMEN & PELVIS W/O CONTRAST, July 09, 2017, 9:15. INDICATIONS : Mid abdominal pain. Evaluate for obstruction versus pancreatitis. ORAL CONTRAST: No oral contrast ingested. RADIATION DOSE: 7.64 CTDIvol (mGy) MEDICAL HISTORY : Diverticulitis. Hypertension. SURGICAL HISTORY : Colon resection. Coronary artery stent.Ureteral stent ENCOUNTER: Initial ACUITY: 1 day PAIN SCALE: 5/10 LOCATION: Bilateral upper quadrant TECHNIQUE: Volumetric scanning of the abdomen and pelvis was performed. Using automated exposure control and ad justment of the mA and/or kV according to patient size, radiation dose was kept as low as reasonably achievable to obtain optimal diagnostic quality images. DICOM format image data is available electro nically for review and comparison. FINDINGS: LOWER LUNGS: The visualized lower lungs are clear. LIVER: Minimal free fluid is identified along the anterolateral liver margin. Liver otherwise is normal appe arance without evidence of space I can find lesions or biliary duct dilatation. Gallbladder is unrema rkable without evidence of stones or significant wall thickening. SPLEEN: Normal size without lesion. PANCREAS: Within normal limits. There is no evidence of acute pancreatitis or mass. KIDNEYS: A left-sided internal ureteral stent is identified. The stent extends from the left renal pelvis to t he bladder. There is no evidence of hydronephrosis or hydroureter. Kidneys are otherwise unremarkable . ADRENAL GLANDS: Within normal limits. VASCULAR: There is no aortic aneurysm. BOWEL/MESENTERY: A few scattered colonic diverticula are noted. Postsurgical changes are identified in the distal desc ending colon. Intestinal tract is otherwise unremarkable without evidence of active inflammatory dise ase, ileus or free air. ABDOMINAL WALL: Within normal limits. RETROPERITONEUM: There is no lymphadenopathy. BLADDER: No wall thickening or mass. REPRODUCTIVE: Within normal limits. INGUINAL: There is no lymphadenopathy or hernia. MUSCULOSKELETAL: Within normal limits for patient age. CONCLUSION: 1. No evidence of acute diverticulitis or pancreatitis. 2. Left internal ureteral stent without evidence of obstructive uropathy. 3. Minimal free fluid along the anterolateral margin of the liver. 4. Postsurgical changes distal left colon. 5. Otherwise unremarkable evaluation. Eliel Nicholson MD on August 16, 2017 at 8:03 Board Certified Radiologist. This report was verified electronically.
--- NOTE | 2017-08-16 09:07 | RADRPT ---
EXAM DATE/TIME: 08/16/2017 08:23 [facility] COMPARISON: CT ABDOMEN & PELVIS W/O CONTRAST, August 16, 2017, 7:52. INDICATIONS : Right upper quadrant pain. MEDICAL HISTORY : Hypertension. Myocardial infarction. Coronary artery disease. Diverticulitis. Renal calculi. Border line diabetic. Osteoarthritis. PTSD. Melanoma. SURGICAL HISTORY : Fusion, cervical. Colon resection. Hernia repair. Right knee replacement. Right rotator cuff repair . Left ankle repair. Lymph node biopsy. Left ureteral stent. ENCOUNTER: Initial ACUITY: 1 day PAIN SCORE: 2/10 LOCATION: Right upper quadrant MEASUREMENTS: LIVER: 17.8 cm length COMMON DUCT: 5 mm RIGHT KIDNEY: 11.4 x 6.1 x 6.1 cm FINDINGS: Mild fatty liver slightly enlarged to 18 cm. Portal venous flow normal direction. No gallstones or bi liary ductal dilatation. Pancreas mildly heterogeneous. Right kidney demonstrates nonobstructing calcification in the lower pole. No hydronephrosis. CONCLUSION: 1. Mild fatty liver. No gallstones or biliary ductal dilatation. Nonobstructing calcification lower p ole right kidney. Roderick Casas MD on August 16, 2017 at 9:02 Board Certified Radiologist. This report was verified electronically.
[2017-08-16] MEDS ORDERED: NORC5TAB PO (09:17)
[2017-08-16] MEDS ORDERED: DICY10 PO (09:17)
[2017-08-16 09:49] VITALS: BP 145/89; PULSE 85; RESP 16; O2SAT 96
== END 2017-08-16 10:33 | disposition home or self-care (01) ==
LOC: NEPE 05:35
DX: R10.84 Generalized abdominal pain (principal); I10 Essential (primary) hypertension
CPT/HCPCS: 74176; 76705; 80053; 81001; 83690; 85025; 87086; 96374; 96375; 99284; J2270; J2405

== ENCOUNTER 2017-12-17 13:58 | Inpatient (IN) ==
[2017-12-17] MEDS ORDERED: ALTEPLASE DRIP IV.SIG ONE (14:32)
[2017-12-17] MEDS ORDERED: Alteplase Bolus 9 MG/9 ML Syringe IV.PUSH ONE (14:32)
--- NOTE | 2017-12-17 14:35 | CT ---
EXAM DATE: 12/17/2017 2:17 PM EDT AGE/SEX: 62 years / Male INDICATIONS: Stroke alert. Dizziness. Blurred vision. Headache. CLINICAL DATA: This is the patient's initial encounter. Patient reports that signs and symptoms have been present for 1 day and indicates a pain score of 0/10. MEDICAL/SURGICAL HISTORY: None. None. RADIATION DOSE: 56.36 CTDI (mGy) COMPARISON: [facility] – [place], [place] BRAIN W/O CONTRAST, 09/11/2012. . Report was called by [ ] TECHNIQUE: CT of the head without contrast. Using automated exposure control and adjustment of the mA and/or kV according to patient size, radiation dose was kept as low as reasonably achievable to ob tain optimal diagnostic quality images. DICOM format image data is available electronically for revi ew and comparison. FINDINGS: There is no evidence for intracranial hemorrhage, mass effect, mass lesions, or edema. The visualize d bony structures appear intact. Slight degree of brain atrophy is seen. Slight periventricular whit e matter changes are seen nonspecific mostly consistent with chronic small vessel ischemic changes. There are no signs of acute infarction for technique. CONCLUSION: Slight chronic small vessel ischemic and atrophic changes. Electronically signed by: Shaina Ward MD 12/17/2017 2:33 PM EDT
[2017-12-17 14:36] LABS: Baso # (Auto) 0.1 th/mm3 (0.0-0.2); Baso % (Auto) 0.5 % (0.0-2.0); Eos # (Auto) 0.2 th/mm3 (0.0-0.4); Eos % (Auto) 1.5 % (0.0-4.0); Mean Corpuscular HGB Conc 34.2 % (32.0-36.0); Mean Corpuscular Hemoglobin 29.1 pg (27.0-34.0); Mono # (Auto) 1.1 th/mm3 (0.0-0.9); Mono % (Auto) 10.9 % (0.0-8.0); Neut % (Auto) 68.1 % (16.0-70.0); Platelet Count 408 th/mm3 (150-450); Red Blood Count 5.17 mil/mm3 (4.50-5.90); Red Cell Distribution Width 13.1 % (11.6-17.2); White Blood Count 10.4 th/mm3 (4.0-11.0)
[2017-12-17 14:39] LABS: Activated Partial Thrombo Time 27.7 sec (24.3-30.1); Prothrombin Time 10.4 sec (9.8-11.6)
[2017-12-17 14:50] LABS: Creatine Kinase 105 U/L (39-308)
--- NOTE | 2017-12-17 15:05 | XR ---
EXAM DATE: 12/17/2017 2:56 PM EDT AGE/SEX: 62 years / Male INDICATIONS: . Stroke alert. CLINICAL DATA: This is the patient's initial encounter. Patient reports that signs and symptoms have been present for 1 day and indicates a pain score of 0/10. MEDICAL/SURGICAL HISTORY: . Diverticulitis. Hypertension. Fusion, cervical. Colon resection. Coronary artery stent.Ureteral stent COMPARISON: [facility] – [place], CHEST PA & LAT, 09/12/2012. . FINDINGS: A single AP view of the chest demonstrates the lungs to be symmetrically aerated without evidence of mass, infiltrate or effusion. The cardiomediastinal contours are unremarkable. Osseous structures a re intact. CONCLUSION: Negative examination. Electronically signed by: Cristofer Burr MD 12/17/2017 3:04 PM EDT
[2017-12-17] MEDS ORDERED: Bisacodyl 10 MG Supp RECTAL PRN (15:47)
[2017-12-17] MEDS: Sod Chloride 0.9% Inj 1,000 ML IV.CONT SCH (16:01)
--- NOTE | 2017-12-17 16:01 | ED ---
HPI General Chief Complaint: Stroke Alert Stated Complaint: Neuro symptoms Time Seen by Provider: 12/17/17 14:02 Source: patient Mode of arrival: wheelchair Limitations: no limitations History of Present Illness Onset (ago): minute(s) (90 minutes) Timing confirmed by: other Location: speech and other (Vision) History of same: Yes Severity: moderate Quality: constant Relieving factors: none Exacerbating factors: none Context: sudden onset On Anticoagulants: No Associated symptoms: headaches Treatments Prior to Arrival: none Related Data Home Medications Medication Instructions Recorded Confirmed aspirin 325 mg PO DAILY 12/17/17 12/17/17 lisinopril 5 mg PO DAILY 12/17/17 12/17/17 metformin 500 mg PO BID 12/17/17 12/17/17 Allergies Allergy/AdvReac Type Severity Reaction Status Date / Time iodine Allergy Severe Anaphylaxis Verified 12/17/17 14:21 naproxen Allergy Severe Anaphylaxis Verified 12/17/17 14:21 potassium iodide Allergy Severe Anaphylaxis Verified 12/17/17 14:21 povidone-iodine Allergy Severe Anaphylaxis Verified 12/17/17 14:21 shellfish derived Allergy Severe Anaphylaxis Verified 12/17/17 14:21 sodium iodide Allergy Severe Anaphylaxis Verified 12/17/17 14:21 sodium iodide Allergy Severe Anaphylaxis Verified 12/17/17 14:21 Review of Systems Except as stated in HPI: all other systems reviewed are negative Constitutional Denies chills and Denies fever(s) Eyes Reports blurry vision, Reports diplopia, Denies eye discharge, Denies loss of vision and Denies eye pain ENT Reports dizziness (Non-positional), Reports disequilibrium and Denies tinnitus Cardiovascular Denies chest pain, Denies syncope and Reports lightheadedness Respiratory Denies cough and Denies dyspnea Gastrointestinal Denies nausea and Denies vomiting Genitourinary Reports system reviewed and no additional complaints, except as docu Musculoskeletal Reports system reviewed and no additional complaints, except as docu Neurologic Reports as per HPI Psychiatric Denies anxiety and Denies memory loss Endocrine Denies polydipsia and Denies polyuria Hematologic/Lymphatic Denies easy bleeding and Denies easy bruising [facility] Medical History Medical History CAD (coronary artery disease) (Acute) Cervical vertebral fusion (Acute) Diabetes (Acute) Diverticulitis (Acute) Hypertension (Acute) Melanoma (Acute) Myocardial infarct (Acute) Rotator cuff arthropathy (Acute) Surgical History Surgical History History of arthroplasty of left ankle (Acute) History of colon resection (Acute) History of heart artery stent (Acute) History of hernia repair (Acute) History of knee surgery (Acute) Social History Social History Substance History: No History of Abuse Second Hand Smoke Exposure: Yes Smoking Status: Former smoker How Often Do You Have a Drink Containing Alcohol: 2 to 4 times a month Recent Travel in [facility] within the Last 8 Weeks: No Recent Out of Country Travel within the Last 8 Weeks: No Immunization History Tetanus Immunization: Unsure Hx Influenza Vaccine This Season: No Exam Narrative Exam Narrative: GENERAL: Well-developed well-nourished male in no acute respiratory distress. SKIN: Focused skin assessment warm/dry. HEAD: Atraumatic. Normocephalic. EYES: Pupils equal and round. Extraocular muscles were intact. Patient had subjective diplopia and blurry vision no scleral icterus. No injection or drainage. ENT: No nasal bleeding or discharge. Mucous membranes pink and moist. NECK: Trachea midline. Supple. CARDIOVASCULAR: Regular rate and rhythm. No murmur appreciated. RESPIRATORY: No accessory muscle use. Clear to auscultation. Breath sounds equal bilaterally. GASTROINTESTINAL: Abdomen soft, non-tender, nondistended. Hepatic and splenic margins not palpable. MUSCULOSKELETAL: No obvious deformities. No clubbing. No cyanosis. No edema. NEUROLOGICAL: Awake and alert. No obvious cranial nerve deficits other than the visual changes. Motor grossly within normal limits. Normal speech. Subjective dizziness. PSYCHIATRIC: Appropriate mood and affect; insight and judgment normal. Course Initial Documented Vital Signs Temperature 98.7 F 12/17/17 14:21 Pulse Rate 89 12/17/17 14:21 Respiratory Rate 16 12/17/17 14:21 Blood Pressure 148/77 H 12/17/17 14:21 Pulse Oximetry 99 12/17/17 14:21 Last Documented Vital Signs Temperature 98.7 F 12/17/17 14:21 Pulse Rate 82 12/17/17 14:27 Respiratory Rate 12 12/17/17 14:27 Blood Pressure 155/90 H 12/17/17 14:27 Pulse Oximetry 97 12/17/17 14:27 Critical Care Time Critical Care Time: Yes Total Critical Care Time: 60 Attestation: Aggregate critical care time was 60 minutes. Time to perform other separately billable procedures was not included in the critical care time. My time did not include minutes spent treating any other patients simultaneously or on activities that did not directly contribute to the patient's treatment. The services I provided to this patient were to treat and/or prevent clinically significant deterioration that could result in: I provided critical care services requiring my management, as noted below: Chart data review, documentation time, medication orders and management, vital sign assessments/reviewing monitor data, ordering and reviewing lab tests, ordering and interpreting/reviewing x-rays and diagnostic studies, care of the patient and discussion of the patient with the admitting physicians. NIH Stroke Scale NIH Stroke Scale Level of Consciousness: 0-Alert Orientation Questions: 0-Answers both correct Responds to Commands: 0-Both tasks correct Gaze Eye Movement: 0-Horizontal movement WNL Visual Cid: 2-Complete hemianopia Facial Movement: 0-Normal Motor Functions Arm LEFT: 0-No drift Motor Functions Arm RIGHT: 0-No drift Motor Functions Leg LEFT: 0-No drift Motor Functions Leg RIGHT: 0-No drift Limb Ataxia: 0-No ataxia Sensory Loss: 0-No sensory loss Best Language: 0-Normal Articulation: 0-Normal Extinction or Inattention Sensory: 0-Absent Total: 2 Quality Measure Queries Stroke Last date observed well: 12/17/17 Last time observed well: 12:00 Medical Decision Making MDM Narrative Medical decision making narrative: This is a 62-year-old male with history of hypertension, diabetes mellitus, presents here today after having sudden onset of visual changes, headache, dizziness that was non-positional. The patient had stuttering episodes over the last week. CT scan of the brain was negative for acute process. Patient was offered TPA with extensive explanation of the risks and benefits. The patient opted for the TPA. TPA was started at 1442. Shortly into his IV administration after the bolus, he had complete resolution of symptoms. He will be admitted to the intensive care unit. Case was discussed with Dr. Cleveland, director technical who will assume care. Case was also discussed with Dr. Meadows, on-call neurologist, who agreed with the plan. He will see the patient in consultation. Differential Diagnosis Differential Diagnosis: TIA versus CVA versus metabolic derangement versus atypical migraine Lab Data Result diagrams: 12/17/17 14:01 Lab Results 12/17/17 12/17/17 12/17/17 Range/Units 14:01 14:01 14: WBC 10.4 (4.0-11.0) th/mm3 RBC 5.17 (4.50-5.90) mil/mm3 Hgb 15.0 (13.0-17.0) gm/dL POC Hgb (Calc) 14.6 (13.0-17.0) g/dL Hct 44.0 (39.0-51.0) % POC Hct 43.0 (39-51.0) % MCV 85.0 (80.0-100.0) fL MCH 29.1 (27.0-34.0) pg MCHC 34.2 (32.0-36.0) % RDW 13.1 (11.6-17.2) % Plt Count 408 (150-450) th/mm3 MPV 7.0 (7.0-11.0) fL Neut % (Auto) 68.1 (16.0-70.0) % Lymph % (Auto) 19.0 (9.0-44.0) % [place] % (Auto) 10.9 H (0.0-8.0) % Eos % (Auto) 1.5 (0.0-4.0) % Baso % (Auto) 0.5 (0.0-2.0) % Neut # (Auto) 7.0 (1.8-7.7) th/mm3 Lymph # (Auto) 2.0 (1.0-4.8) th/mm3 [place] # (Auto) 1.1 H (0.0-0.9) th/mm3 Eos # (Auto) 0.2 (0.0-0.4) th/mm3 Baso # (Auto) 0.1 (0.0-0.2) th/mm3 WBC Differential . Differential Comment Auto diff final PT 10.4 (9.8-11.6) sec INR 1.0 Ratio APTT 27.7 (24.3-30.1) sec Fibrinogen 434 H (227-377) mg/dL POC Sodium 136 L (137-144) mmol/L POC Potassium 4.3 (3.6-5.0) mmol/L POC Chloride 101 L (102-111) mmol/L POC BUN 10 (5-21) mg/dL POC Creatinine 0.8 (0.6-1.3) mg/dL POC Glucose 215 H (68-110) mg/dL Total Creatine Kinase 105 (39-308) U/L Troponin I Less than 0.02 L (0.02-0.05) ng/mL Blood Type Blood Type Recheck Antibody Screen 12/17/17 Range/Units 14:01 WBC (4.0-11.0) th/mm3 RBC (4.50-5.90) mil/mm3 Hgb (13.0-17.0) gm/dL POC Hgb (Calc) (13.0-17.0) g/dL Hct (39.0-51.0) % POC Hct (39-51.0) % MCV (80.0-100.0) fL MCH (27.0-34.0) pg MCHC (32.0-36.0) % RDW (11.6-17.2) % Plt Count (150-450) th/mm3 MPV (7.0-11.0) fL Neut % (Auto) (16.0-70.0) % Lymph % (Auto) (9.0-44.0) % [place] % (Auto) (0.0-8.0) % Eos % (Auto) (0.0-4.0) % Baso % (Auto) (0.0-2.0) % Neut # (Auto) (1.8-7.7) th/mm3 Lymph # (Auto) (1.0-4.8) th/mm3 [place] # (Auto) (0.0-0.9) th/mm3 Eos # (Auto) (0.0-0.4) th/mm3 Baso # (Auto) (0.0-0.2) th/mm3 WBC Differential Differential Comment PT (9.8-11.6) sec INR Ratio APTT (24.3-30.1) sec Fibrinogen (227-377) mg/dL POC Sodium (137-144) mmol/L POC Potassium (3.6-5.0) mmol/L POC Chloride (102-111) mmol/L POC BUN (5-21) mg/dL POC Creatinine (0.6-1.3) mg/dL POC Glucose (68-110) mg/dL Total Creatine Kinase (39-308) U/L Troponin I (0.02-0.05) ng/mL Blood Type A Positive Blood Type Recheck Antibody Screen Negative Imaging Data Radiologist's impression: Chest X-Ray 12/17/17 14:11 CONCLUSION: Negative examination. Head CT 12/17/17 14:11 CONCLUSION: Slight chronic small vessel ischemic and atrophic changes. Discharge Plan Discharge Disposition Patient Disposition: 30 Still Patient Discharge Details Diagnosis: Acute ischemic stroke, Hypertension, Diabetes mellitus Physicians Team ED Provider: Jesus Manuel Dominguez Primary Care Provider: UNKNOWN, Attending Provider: Neela Cleveland Other Providers: Pancho Meadows Discharge Interventions Interventions: Vital Signs Last Done: 12/17/17 14:27 Status ED Status: Admitted Patient
--- NOTE | 2017-12-17 16:28 | P.HPCC ---
History of Present Illness Primary Care Physician: UNKNOWN Chief Complaint: Sudden onset dizziness and blurred vision History of Present Illness: Patient is a 62-year-old male with past medical history significant for coronary artery disease, cervical vertebral fusion, type 2 diabetes, hypertension, history of melanoma, past smoking. He developed sudden onset blurry vision, diplopia and dizziness. Had several episodes of similar symptoms the preceding week which lasted several minutes. This time symptoms persisted and patient presented to the ED. Initially blood pressure was 170/ 90. CT scan showed no acute findings. Dr. Meadows was consulted from neurology. Patient was deemed a good candidate for TPA. Patient received IV TPA with resolution of symptoms post. Critical care medicine was consulted to evaluate and admit the patient. I evaluated the patient in the ED. He does not appear to be in any discomfort lying flat on ER gurney. His symptoms consistent with posterior circulation/ vertebrobasilar CVA Inpatient Certification: I certify that the inpatient services were ordered in accordance with Medicare regulations governing the order. This includes certification that hospital inpatient services are reasonable and necessary and in the case of services not specified as inpatient-only under 42 CFR 419.22(n), that they are appropriately provided as inpatient services in accordance to with the 2-midnight benchmark under 43 CFR 412.3(e) Estimated Total Length of Stay (Days): 3 Plans for Post Hospital Care: Not yet determined Review of Systems other (as per HPI) [facility] - History History Provided By: Patient - Medical History Medical History: Medical History (Last Reviewed 12/17/17 @ 16:27 by Neela Cleveland MD) CAD (coronary artery disease) Cervical vertebral fusion Diabetes Diverticulitis Hypertension Melanoma Myocardial infarct Rotator cuff arthropathy - Surgical History Surgical History: Surgical History (Last Reviewed 12/17/17 @ 16:27 by Neela Cleveland MD) History of arthroplasty of left ankle History of colon resection History of heart artery stent History of hernia repair History of knee surgery - Tobacco History Second Hand Smoke Exposure: Yes Tobacco Use In Past 30 Days: No Smoking Status: Former smoker - Alcohol History How Often Do You Have a Drink Containing Alcohol: 2 to 4 times a month - Substance Use History Substance History: No History of Abuse - Travel History Recent Travel in the [place] Within the Last 8 Weeks: No Recent Travel Out of the Country Within the Last 8 Weeks: No - Immunization History Tetanus Immunization: Unsure Hx Influenza Vaccine This Season: No Medications and Allergies Active Medications: Active Medications Acetaminophen (Tylenol) 650 mg PO Q6H PRN PRN Reason: PAIN 1-10 AND/OR FEVER >101F Al Hydroxide/Mg Hydroxide (Milk Of Magnesia Liq) 30 ml PO Q12H PRN PRN Reason: Mild Constipation Albuterol (Duoneb Neb (Prn)) 1 ampul NEB Q2HR NEB PRN PRN Reason: WHEEZING Bisacodyl (Dulcolax Supp) 10 mg RECTAL DAILY PRN PRN Reason: SEVERE CONSITIPATION Chlorhexidine Gluconate (Chlorhexidine 2% Cloth) 3 pack TOPICAL DAILY@0400 CJ Stop: 12/23/17 03:59 Chlorhexidine Gluconate (Chlorhexidine 2% Cloth) 3 pack TOPICAL DAILY@0400 PRN PRN Reason: Extra cloth needed Stop: 12/23/17 03:59 Famotidine (Pepcid Pf Inj) 20 mg IV.PUSH Q12HR [facility] Sodium Chloride (Ns Inj) 1,000 mls @ 84 mls/hr IV.CONT .[id number] [facility] Last Admin: 12/17/17 16:01 Dose: 84 mls/hr Lactulose (Lactulose Liq) 30 ml PO DAILY PRN PRN Reason: SEVERE CONSITIPATION Senna/Docusate Sodium (Faye-Colace) 1 tab PO BID [facility] Sennosides (Senokot) 17.2 mg PO Q12H PRN PRN Reason: Moderate Constipation Sodium Chloride (Ns Flush) 2 ml IV.FLUSH BID [facility] Sodium Chloride (Ns Flush) 2 ml IV.FLUSH PRN PRN PRN Reason: FLUSH AFTER USING IV ACCESS Allergies Allergy/AdvReac Type Severity Reaction Status Date / Time iodine Allergy Severe Anaphylaxis Verified 12/17/17 14:21 naproxen Allergy Severe Anaphylaxis Verified 12/17/17 14:21 potassium iodide Allergy Severe Anaphylaxis Verified 12/17/17 14:21 povidone-iodine Allergy Severe Anaphylaxis Verified 12/17/17 14:21 shellfish derived Allergy Severe Anaphylaxis Verified 12/17/17 14:21 sodium iodide Allergy Severe Anaphylaxis Verified 12/17/17 14:21 sodium iodide Allergy Severe Anaphylaxis Verified 12/17/17 14:21 Home Medications Medication Instructions Recorded Confirmed Type aspirin 325 mg PO DAILY 12/17/17 12/17/17 History lisinopril 5 mg PO DAILY 12/17/17 12/17/17 History metformin 500 mg PO BID 12/17/17 12/17/17 History Results - Labs CBC & Chem 7: 12/17/17 14:01 Labs: Short CBC 12/17/17 Range/Units 14:01 WBC 10.4 (4.0-11.0) th/mm3 Hgb 15.0 (13.0-17.0) gm/dL Hct 44.0 (39.0-51.0) % Plt Count 408 (150-450) th/mm3 Cardiac Enzymes 12/17/17 Range/Units 14:01 Total Creatine Kinase 105 (39-308) U/L Troponin I Less than 0.02 L (0.02-0.05) ng/mL - Imaging Impressions Chest X-Ray 12/17/17 14:11 CONCLUSION: Negative examination. Head CT 12/17/17 14:11 CONCLUSION: Slight chronic small vessel ischemic and atrophic changes. Exam Vital signs: Vital Signs 12/17/17 14:21 12/17/17 14:27 Temperature 98.7 F Pulse Rate 89 82 Respiratory Rate 16 12 Blood Pressure 148/77 H 155/90 H Pulse Oximetry 99 97 Intake & Output 12/16/17 12/17/17 12/17/17 18:59 06:59 18:59 Intake Total 72 / 72 Balance 72 / 72 Weight 89.1 kg Intake: IV 72 / 72 Activase Drip 72 MG In Bag/ 72 / 72 Syringe 1 EACH @ 72 mls/hr IV. SIG ONCE ONE Rx#:[id number] Narrative: Exam Narrative: GENERAL: Well-developed well-nourished male in no acute respiratory distress, lying in [facility]. SKIN: warm/dry. HEAD: Atraumatic. Normocephalic. EYES: Pupils equal and round. Extraocular muscles were intact. No injection or drainage. ENT: No nasal bleeding or discharge. NECK: Trachea midline. Supple. No carotid bruit. CARDIOVASCULAR: Regular rate and rhythm. No murmur appreciated. RESPIRATORY: No accessory muscle use. Clear to auscultation. Breath sounds equal bilaterally. GASTROINTESTINAL: Abdomen soft, non-tender, nondistended. MUSCULOSKELETAL: No obvious deformities. No clubbing. No cyanosis. No edema. NEUROLOGICAL: Awake and alert. No obvious cranial nerve deficits. Motor grossly within normal limits. Normal speech. Septic Shock Reassessment Septic shock perfusion: reassessment completed Caprini VTE Risk Assessment Caprini VTE Risk Assessment: Moderate/High Risk (score >= 2) Caprini Risk Assessment Model: Point Value = 1 Point Value = 2 Point Value = 3 Point Value = 5 Age 41-60 Minor surgery BMI > 25 kg/m2 Swollen legs Varicose veins or History of unexplained or recurrent spontaneous Oral contraceptives or hormone replacement Sepsis (< 1 month) Serious lung disease, including pneumonia (< 1 month) Abnormal pulmonary function Acute myocardial infarction Congestive heart failure (< 1 month) History of inflammatory bowel disease Medical patient at bed rest Age 61-74 Arthroscopic surgery Major open surgery (> 45 min) Laparoscopic surgery (> 45 min) Malignancy Confined to bed (> 72 hours) Immobilizing plaster cast Central venous access Age >= 75 History of VTE Family history of VTE Factor V Leiden Prothrombin [id number] Lupus anticoagulant Anticardiolipin antibodies Elevated serum homocysteine Heparin-induced thrombocytopenia Other congenital or acquired thrombophilia Stroke (< 1 month) Elective arthroplasty Hip, pelvis, or leg fracture Acute spinal cord injury (< 1 month) Prophylaxis Regimen: Total Risk Factor Score Risk Level Prophylaxis Regimen 0-1 Low Early ambulation 2 Moderate Order ONE of the following: *Sequential Compression Device (SCD) *Heparin 5000 units SQ BID 3-4 Higher Order ONE of the following medications: *Heparin 5000 units SQ TID *Enoxaparin/Lovenox 40 mg SQ daily (WT < 150 kg, CrCl > 30 mL/min) *Enoxaparin/Lovenox 30 mg SQ daily (WT < 150 kg, CrCl > 10-29 mL/min) *Enoxaparin/Lovenox 30 mg SQ BID (WT < 150 kg, CrCl > 30 mL/min) AND/OR *Sequential Compression Device (SCD) 5 or more Highest Order ONE of the following medications: *Heparin 5000 units SQ TID (Preferred with Epidurals) *Enoxaparin/Lovenox 40 mg SQ daily (WT < 150 kg, CrCl > 30 mL/min) *Enoxaparin/Lovenox 30 mg SQ daily (WT < 150 kg, CrCl > 10-29 mL/min) *Enoxaparin/Lovenox 30 mg SQ BID (WT < 150 kg, CrCl > 30 mL/min) AND *Sequential Compression Device (SCD) Assessment and Plan - Assessment and Plan Plan: ASSESSMENT: Acute vertebrobasilar stroke versus TIA Uncontrolled hypertension Coronary artery disease status post PCI/stent Type 2 diabetes History of melanoma PLAN: NEURO: -Status post TPA administration, follow post TPA protocol -Restart aspirin in 24 hours -Stroke workup including 2D echo, MRI MRA brain and neck, TSH, B12, lipid profile -Neurology Dr. Meadows -CT head in 24 hours RESP: -Nasal cannula oxygen to keep oxygen saturation more than 90% -DuoNeb every 6 hours as needed CV: -Normal saline IV fluids -Keep blood pressure less than 185/10 per TPA protocol -Resume aspirin after 24 hours -Cardiology Dr. Calles GI: -Heart healthy diet when cleared by neurology -IV famotidine : -Monitor renal function closely. ID: -No evidence of infection at this time HEME: -Monitor CBC, CMP ENDO: -Electrolyte replacement per protocol -Sliding scale insulin PROPH: -Bilateral lower extremity SCDs. No chemical DVT prophylaxis for 24 hours LINES: -Utilize peripheral IVs, central line if needed Level 3 Hospitalist consulted to assume care 12/19/2017 Code Status: Full Discussed Condition With: Dr. Dominguez
--- NOTE | 2017-12-17 16:33 | P.CONNEU ---
History of Present Illness Service: Neurology Primary Care Provider: UNKNOWN Chief Complaint: Blurry vision History of Present Illness: 60-year-old gentleman arrives to [place] ER complaints of sudden onset of blurry vision, diplopia and gait imbalance. Had symptoms off and on past few days this is lasted several minutes and persisting the ER. No weakness. Noted hypertension blood pressure 170/90. CT brain scan no acute lesion takes aspirin daily no history of TIA or stroke. No history of head injury concussion. IV TPA discussed with patient risks benefits discussed and he wanted to proceed. With the administration IV TPA symptoms resolved. Denies any headache fever chest pain dyspnea any history of hypercoagulable state or atrial fibrillation. Review of Systems All other systems reviewed negative except as stated in HPI [facility] - History History Provided By: Patient - Medical History Medical History: Medical History (Last Updated 12/17/17 @ 15:29 by Sunita Shannon) CAD (coronary artery disease) Cervical vertebral fusion Diabetes Diverticulitis Hypertension Melanoma Myocardial infarct Rotator cuff arthropathy - Surgical History Surgical History: Surgical History (Last Updated 12/17/17 @ 15:26 by Sunita Shannon) History of arthroplasty of left ankle History of colon resection History of heart artery stent History of hernia repair History of knee surgery - Tobacco History Second Hand Smoke Exposure: Yes Tobacco Use In Past 30 Days: No Smoking Status: Former smoker - Alcohol History How Often Do You Have a Drink Containing Alcohol: 2 to 4 times a month - Substance Use History Substance History: No History of Abuse - Travel History Recent Travel in the [place] Within the Last 8 Weeks: No Recent Travel Out of the Country Within the Last 8 Weeks: No - Immunization History Tetanus Immunization: Unsure Hx Influenza Vaccine This Season: No Medications and Allergies Active Medications: Active Medications Acetaminophen (Tylenol) 650 mg PO Q6H PRN PRN Reason: PAIN 1-10 AND/OR FEVER >101F Al Hydroxide/Mg Hydroxide (Milk Of Magnmiracle Liq) 30 ml PO Q12H PRN PRN Reason: Mild Constipation Albuterol (Duoneb Neb (Prn)) 1 ampul NEB Q2HR NEB PRN PRN Reason: WHEEZING Bisacodyl (Dulcolax Supp) 10 mg RECTAL DAILY PRN PRN Reason: SEVERE CONSITIPATION Chlorhexidine Gluconate (Chlorhexidine 2% Cloth) 3 pack TOPICAL DAILY@0400 [facility] Stop: 12/23/17 03:59 Chlorhexidine Gluconate (Chlorhexidine 2% Cloth) 3 pack TOPICAL DAILY@0400 PRN PRN Reason: Extra cloth needed Stop: 12/23/17 03:59 Famotidine (Pepcid Pf Inj) 20 mg IV.PUSH Q12HR [facility] Sodium Chloride (Ns Inj) 1,000 mls @ 84 mls/hr IV.CONT .[id number] [facility] Last Admin: 12/17/17 16:01 Dose: 84 mls/hr Lactulose (Lactulose Liq) 30 ml PO DAILY PRN PRN Reason: SEVERE CONSITIPATION Senna/Docusate Sodium (Faye-Colace) 1 tab PO BID [facility] Sennosides (Senokot) 17.2 mg PO Q12H PRN PRN Reason: Moderate Constipation Sodium Chloride (Ns Flush) 2 ml IV.FLUSH BID [facility] Sodium Chloride (Ns Flush) 2 ml IV.FLUSH PRN PRN PRN Reason: FLUSH AFTER USING IV ACCESS Allergies Allergy/AdvReac Type Severity Reaction Status Date / Time iodine Allergy Severe Anaphylaxis Verified 12/17/17 14:21 naproxen Allergy Severe Anaphylaxis Verified 12/17/17 14:21 potassium iodide Allergy Severe Anaphylaxis Verified 12/17/17 14:21 povidone-iodine Allergy Severe Anaphylaxis Verified 12/17/17 14:21 shellfish derived Allergy Severe Anaphylaxis Verified 12/17/17 14:21 sodium iodide Allergy Severe Anaphylaxis Verified 12/17/17 14:21 sodium iodide Allergy Severe Anaphylaxis Verified 12/17/17 14:21 Home Medications Medication Instructions Recorded Confirmed Type aspirin 325 mg PO DAILY 12/17/17 12/17/17 History lisinopril 5 mg PO DAILY 12/17/17 12/17/17 History metformin 500 mg PO BID 12/17/17 12/17/17 History Exam Vital signs: Vital Signs 12/17/17 14:21 12/17/17 14:27 Temperature 98.7 F Pulse Rate 89 82 Respiratory Rate 16 12 Blood Pressure 148/77 H 155/90 H Pulse Oximetry 99 97 Intake & Output 12/16/17 12/17/17 12/17/17 18:59 06:59 18:59 Intake Total 72 / 72 Balance 72 / 72 Weight 89.1 kg Intake: IV 72 / 72 Activase Drip 72 MG In Bag/ / 72 Syringe 1 EACH @ 72 mls/hr IV. SIG ONCE ONE Rx#:[id number] - Constitutional no acute distress - Routine HEENT Exam Head: Present: normocephalic Eye: Present: EOMI, PERRL - Routine Neck Exam Present: supple, full ROM - Routine Abdominal Exam Present: soft - Routine Neurological Exam Present: alert, oriented X3, CN II-XII intact Awake alert oriented 3 extraocular movements intact no ptosis visual osuna full pupils 3 2 mm bilaterally no facial asymmetry no pronator drift no dystaxia able to raise all 4 extremities gravity for greater than 10 seconds. Gait not assessed secondary to fall risk no neglect Results - Labs CBC & Chem 7: 12/17/17 14:01 Labs: Laboratory Results - last 24 hr 12/17/17 12/17/17 12/17/17 14:01 14:01 14:01 WBC 10.4 RBC 5.17 Hgb 15.0 POC Hgb (Calc) 14.6 Hct 44.0 POC Hct 43.0 MCV 85.0 MCH 29.1 MCHC 34.2 RDW 13.1 Plt Count 408 MPV 7.0 Neut % (Auto) 68.1 Lymph % (Auto) 19.0 [place] % (Auto) 10.9 H Eos % (Auto) 1.5 Baso % (Auto) 0.5 Neut # (Auto) 7.0 Lymph # (Auto) 2.0 [place] # (Auto) 1.1 H Eos # (Auto) 0.2 Baso # (Auto) 0.1 WBC Differential . Differential Comment Auto diff final PT 10.4 INR 1.0 APTT 27.7 Fibrinogen 434 H POC Sodium 136 L POC Potassium 4.3 POC Chloride 101 L POC BUN 10 POC Creatinine 0.8 POC Glucose 215 H Total Creatine Kinase 105 Troponin I Less than 0.02 L Blood Type Blood Type Recheck Antibody Screen 12/17/17 14:01 WBC RBC Hgb POC Hgb (Calc) Hct POC Hct MCV MCH MCHC RDW Plt Count MPV Neut % (Auto) Lymph % (Auto) [place] % (Auto) Eos % (Auto) Baso % (Auto) Neut # (Auto) Lymph # (Auto) [place] # (Auto) Eos # (Auto) Baso # (Auto) WBC Differential Differential Comment PT INR APTT Fibrinogen POC Sodium POC Potassium POC Chloride POC BUN POC Creatinine POC Glucose Total Creatine Kinase Troponin I Blood Type A Positive Blood Type Recheck Antibody Screen Negative - Imaging Impressions Chest X-Ray 12/17/17 14:11 CONCLUSION: Negative examination. Head CT 12/17/17 14:11 CONCLUSION: Slight chronic small vessel ischemic and atrophic changes. Review/Management - Diagnosis (1) Acute ischemic stroke Code(s): I63.9 - Cerebral infarction, unspecified Status: Acute Current Visit: Yes (2) Hypertension Code(s): I10 - Essential (primary) hypertension Status: Acute Current Visit : Yes (3) Diabetes mellitus Code(s): E11.9 - Type 2 diabetes mellitus without complications Status: Acute Current Visit: Yes - Review/Management Plan: Possible acute ischemic stroke versus resolving TIA to the vertebrobasilar system resulting in a cranial neuropathy and gait ataxia. The other considerations would include diabetic ischemic cranial neuropathy symptoms to be more persistent Recommendations Post IV TPA order set Echocardiogram, MRI MRA brain Fasting lipids Blood pressure less than 180/100 all times No blood thinners for 24 hours status post TPA SCDs After CT brain scan performed over 24 hours is normal with restart aspirin with Plavix Long-term blood pressure, diabetes, lipid control Discussed above with patient. (2) Hypertension Qualifiers: Hypertension type: unspecified Qualified Code(s): I10 - Essential (primary) hypertension (3) Diabetes mellitus Qualifiers: Diabetes mellitus type: type 2 Diabetes mellitus complication status: without complication
[2017-12-17 18:58] LABS: Bilirubin,Urine Negative (Negative); Clarity,Urine Clear (Clear); Color,Urine Yellow (Yellw/Straw); Glucose,Urine (UA) 50 mg/dL (Negative); Leukocyte Esterase,Urine Negative (Negative); Nitrite,Urine Negative (Negative); Specific Gravity,Urine 1.012 (1.002-1.035)
[2017-12-17] MEDS: Senna/Docusate Sodium 8.6/50 MG Tablet PO SCH (21:38)
[2017-12-17] MEDS: Famotidine PF Inj 20 MG/2 ML Vial IV.PUSH SCH (21:41)
[2017-12-17] MEDS: Acetaminophen 325 MG Tablet PO PRN (21:41)
[2017-12-18] MEDS ORDERED: Chlorhexidine Gluconate 2% 1 Pack (2 Cloths) TOPICAL PRN (04:00)
[2017-12-18 04:04] LABS: Baso # (Auto) 0.1 th/mm3 (0.0-0.2); Baso % (Auto) 0.6 % (0.0-2.0); Eos # (Auto) 0.2 th/mm3 (0.0-0.4); Eos % (Auto) 1.8 % (0.0-4.0); Hematocrit 45.4 % (39.0-51.0); Hemoglobin 15.4 gm/dL (13.0-17.0); Lymph # (Auto) 2.7 th/mm3 (1.0-4.8); Lymph % (Auto) 26.2 % (9.0-44.0); Mean Corpuscular Hemoglobin 28.8 pg (27.0-34.0); Mean Corpuscular Volume 84.8 fL (80.0-100.0); Mean Platelet Volume 7.2 fL (7.0-11.0); Mono # (Auto) 1.1 th/mm3 (0.0-0.9); Mono % (Auto) 10.8 % (0.0-8.0); Neut # (Auto) 6.2 th/mm3 (1.8-7.7); Neut % (Auto) 60.6 % (16.0-70.0); Platelet Count 363 th/mm3 (150-450); Red Blood Count 5.35 mil/mm3 (4.50-5.90); Red Cell Distribution Width 13.2 % (11.6-17.2); White Blood Count 10.3 th/mm3 (4.0-11.0)
[2017-12-18 04:31] LABS: Alanine Aminotransferase 22 U/L (12-78); Albumin 3.3 g/dL (3.4-5.0); Anion Gap 7 meq/L (5-15); Aspartate Aminotransferase 18 U/L (15-37); Blood Urea Nitrogen 8 mg/dL (7-18); Calcium 9.3 mg/dL (8.5-10.1); Carbon Dioxide 25.8 meq/L (21.0-32.0); Chloride 106 meq/L (98-107); Cholesterol 131 mg/dL (120-200); Glomerular Filtration Rate 88 mL/min (>89); Glucose,Random 98 mg/dL (74-106); Magnesium 2.1 mg/dL (1.5-2.5); Potassium 4.2 meq/L (3.5-5.1); Sodium 139 meq/L (136-145); Triglycerides 71 mg/dL (42-150)
[2017-12-18 04:34] LABS: Alkaline Phosphatase 57 U/L (45-117); Chol/HDL Ratio 3.11 Ratio; LDL Cholesterol,Calculated 75 mg/dL (0-99); Total Protein 7.8 g/dL (6.4-8.2)
--- NOTE | 2017-12-18 07:40 | P.PNNEU ---
Subjective Subjective Comments: No acute events reported No headache No chest pain No dyspnea Active Medications: Active Medications Acetaminophen (Tylenol) 650 mg PO Q6H PRN PRN Reason: PAIN 1-10 AND/OR FEVER >101F Last Admin: 12/17/17 21:41 Dose: 650 mg Al Hydroxide/Mg Hydroxide (Milk Of Magnesia Liq) 30 ml PO Q12H PRN PRN Reason: Mild Constipation Albuterol (Duoneb Neb (Prn)) 1 ampul NEB Q2HR NEB PRN PRN Reason: WHEEZING Bisacodyl (Dulcolax Supp) 10 mg RECTAL DAILY PRN PRN Reason: SEVERE CONSITIPATION Chlorhexidine Gluconate (Chlorhexidine 2% Cloth) 3 pack TOPICAL DAILY@0400 [facility] Stop: 12/23/17 03:59 Chlorhexidine Gluconate (Chlorhexidine 2% Cloth) 3 pack TOPICAL DAILY@0400 PRN PRN Reason: Extra cloth needed Stop: 12/23/17 03:59 Famotidine (Pepcid Pf Inj) 20 mg IV.PUSH Q12HR [facility] Last Admin: 12/17/17 21:41 Dose: 20 mg Sodium Chloride (Ns Inj) 1,000 mls @ 84 mls/hr IV.CONT .[id number] [facility] Last Admin: 12/17/17 16:01 Dose: 84 mls/hr Lactulose (Lactulose Liq) 30 ml PO DAILY PRN PRN Reason: SEVERE CONSITIPATION Senna/Docusate Sodium (Faye-Colace) 1 tab PO BID [facility] Last Admin: 12/17/17 21:38 Dose: Not Given Sennosides (Senokot) 17.2 mg PO Q12H PRN PRN Reason: Moderate Constipation Sodium Chloride (Ns Flush) 2 ml IV.FLUSH BID [facility] Last Admin: 12/17/17 21:41 Dose: 2 ml Sodium Chloride (Ns Flush) 2 ml IV.FLUSH PRN PRN PRN Reason: FLUSH AFTER USING IV ACCESS Allergies/Adverse Reactions: Allergies Allergy/AdvReac Type Severity Reaction Status Date / Time iodine Allergy Severe Anaphylaxis Verified 12/17/17 14:21 naproxen Allergy Severe Anaphylaxis Verified 12/17/17 14:21 potassium iodide Allergy Severe Anaphylaxis Verified 12/17/17 14:21 povidone-iodine Allergy Severe Anaphylaxis Verified 12/17/17 14:21 shellfish derived Allergy Severe Anaphylaxis Verified 12/17/17 14:21 sodium iodide Allergy Severe Anaphylaxis Verified 12/17/17 14:21 sodium iodide Allergy Severe Anaphylaxis Verified 12/17/17 14:21 Review of Systems All other systems reviewed negative except as stated in HPI Physical Exam Vital signs: Vital Signs 12/17/17 14:21 12/17/17 14:27 12/17/17 16:00 Temperature 98.7 F Pulse Rate 89 82 Respiratory Rate 16 12 Blood Pressure 148/77 H 155/90 H 143/83 H Pulse Oximetry 99 97 12/17/17 17:00 12/17/17 18:00 12/17/17 18:17 Temperature Pulse Rate 78 Respiratory Rate 17 Blood Pressure 148/82 H 158/75 H 158/75 H Pulse Oximetry 97 12/17/17 18:47 12/17/17 19:00 12/17/17 19:17 Temperature Pulse Rate 82 82 80 Respiratory Rate 22 22 16 Blood Pressure 142/78 H 142/78 H 132/81 Pulse Oximetry 98 98 99 12/17/17 19:47 12/17/17 20:00 12/17/17 20:17 Temperature Pulse Rate 74 78 78 Respiratory Rate 12 20 23 Blood Pressure 137/81 142/76 H 142/76 H Pulse Oximetry 95 96 98 12/17/17 20:47 12/17/17 21:00 12/17/17 21:17 Temperature Pulse Rate 76 68 72 Respiratory Rate 22 20 24 Blood Pressure 133/74 137/72 137/72 Pulse Oximetry 99 98 99 12/17/17 21:47 12/17/17 22:00 12/17/17 22:17 Temperature Pulse Rate 76 62 66 Respiratory Rate 22 16 20 Blood Pressure 146/86 H 137/71 137/71 Pulse Oximetry 98 98 97 12/17/17 23:17 12/18/17 00:00 12/18/17 01:00 Temperature 98.9 F Pulse Rate 70 48 L 50 L Respiratory Rate 18 17 18 Blood Pressure 124/81 131/70 120/65 Pulse Oximetry 98 97 96 12/18/17 02:00 12/18/17 03:00 12/18/17 04:00 Temperature 98.6 F Pulse Rate 48 L 48 L 50 L Respiratory Rate 18 15 16 Blood Pressure 108/60 124/78 120/63 Pulse Oximetry 96 97 96 12/18/17 05:00 12/18/17 06:00 Temperature Pulse Rate 48 L 50 L Respiratory Rate 18 20 Blood Pressure 124/60 121/63 Pulse Oximetry 96 94 L Intake & Output 12/17/17 12/18/17 12/18/17 18:59 06:59 18:59 Intake Total 72 / 72 Output Total 1300 / 1300 Balance 72 / 72 -1300 / -1300 Weight 89.1 kg 89.1 kg Intake: IV 72 / 72 Activase Drip 72 MG In Bag/ 72 / 72 Syringe 1 EACH @ 72 mls/hr IV. SIG ONCE ONE Rx#:[id number] Output: Urine 1300 / 1300 Other: # Bowel Movements 0 - Constitutional no acute distress - Routine HEENT Exam Head: Present: normocephalic, atraumatic - Routine Neck Exam Present: supple, full ROM - Routine Abdominal Exam Present: soft - Routine Neurological Exam Present: alert, oriented X3, CN II-XII intact, moving all extremities ox 3, eomi, face sym, vff, no drift, nihss 0 Objective Laboratory Results - last 24 hr 12/17/17 12/17/17 12/17/17 14:01 14:01 14:01 WBC 10.4 RBC 5.17 Hgb 15.0 POC Hgb (Calc) 14.6 Hct 44.0 POC Hct 43.0 MCV 85.0 MCH 29.1 MCHC 34.2 RDW 13.1 Plt Count 408 MPV 7.0 Neut % (Auto) 68.1 Lymph % (Auto) 19.0 [place] % (Auto) 10.9 H Eos % (Auto) 1.5 Baso % (Auto) 0.5 Neut # (Auto) 7.0 Lymph # (Auto) 2.0 [place] # (Auto) 1.1 H Eos # (Auto) 0.2 Baso # (Auto) 0.1 WBC Differential . Differential Comment Auto diff final ESR PT 10.4 INR 1.0 APTT 27.7 Fibrinogen 434 H POC Sodium 136 L Sodium POC Potassium 4.3 Potassium POC Chloride 101 L Chloride Carbon Dioxide Anion Gap POC BUN 10 BUN Creatinine POC Creatinine 0.8 Estimated GFR POC Glucose 215 H Random Glucose Calcium Magnesium Total Bilirubin AST ALT Alkaline Phosphatase Total Creatine Kinase 105 Troponin I Less than 0.02 L Total Protein Albumin Triglycerides Cholesterol LDL Cholesterol, Calc HDL Cholesterol Cholesterol/HDL Ratio Vitamin B12 TSH Urine Color Urine Clarity Urine pH Ur Specific [place] Urine Protein Urine Glucose (UA) Urine Ketones Urine Occult Blood Urine Nitrate Urine Bilirubin Urine Urobilinogen Ur Leukocyte Esterase Urine RBC Micro UA Comment Urine Culture Comments Nasal Screen MRSA (PCR) Blood Type Blood Type Recheck Antibody Screen 12/17/17 12/17/17 12/17/17 14:01 14:01 14:01 WBC RBC Hgb POC Hgb (Calc) Hct POC Hct MCV MCH MCHC RDW Plt Count MPV Neut % (Auto) Lymph % (Auto) [place] % (Auto) Eos % (Auto) Baso % (Auto) Neut # (Auto) Lymph # (Auto) [place] # (Auto) Eos # (Auto) Baso # (Auto) WBC Differential Differential Comment ESR 37 H PT INR APTT Fibrinogen POC Sodium Sodium POC Potassium Potassium POC Chloride Chloride Carbon Dioxide Anion Gap POC BUN BUN Creatinine POC Creatinine Estimated GFR POC Glucose Random Glucose Calcium Magnesium Total Bilirubin AST ALT Alkaline Phosphatase Total Creatine Kinase Troponin I Total Protein Albumin Triglycerides Cholesterol LDL Cholesterol, Calc HDL Cholesterol Cholesterol/HDL Ratio Vitamin B12 698 TSH Urine Color Urine Clarity Urine pH Ur Specific [place] Urine Protein Urine Glucose (UA) Urine Ketones Urine Occult Blood Urine Nitrate Urine Bilirubin Urine Urobilinogen Ur Leukocyte Esterase Urine RBC Micro UA Comment Urine Culture Comments Nasal Screen MRSA (PCR) Blood Type A Positive Blood Type Recheck Antibody Screen Negative 12/17/17 12/17/17 12/17/17 14:01 18:00 23:00 WBC RBC Hgb POC Hgb (Calc) Hct POC Hct MCV MCH MCHC RDW Plt Count MPV Neut % (Auto) Lymph % (Auto) [place] % (Auto) Eos % (Auto) Baso % (Auto) Neut # (Auto) Lymph # (Auto) [place] # (Auto) Eos # (Auto) Baso # (Auto) WBC Differential Differential Comment ESR PT INR APTT Fibrinogen POC Sodium Sodium POC Potassium Potassium POC Chloride Chloride Carbon Dioxide Anion Gap POC BUN BUN Creatinine POC Creatinine Estimated GFR POC Glucose Random Glucose Calcium Magnesium Total Bilirubin AST ALT Alkaline Phosphatase Total Creatine Kinase Troponin I Total Protein Albumin Triglycerides Cholesterol LDL Cholesterol, Calc HDL Cholesterol Cholesterol/HDL Ratio Vitamin B12 TSH 0.978 Urine Color Yellow Urine Clarity Clear Urine pH 7.0 Ur Specific [place] 1.012 Urine Protein Negative Urine Glucose (UA) 50 Urine Ketones Negative Urine Occult Blood Small H Urine Nitrate Negative Urine Bilirubin Negative Urine Urobilinogen Less than 2 Ur Leukocyte Esterase Negative Urine RBC 1 Micro UA Comment Culture not ind Urine Culture Comments Culture not ind Nasal Screen MRSA (PCR) Not detected Blood Type Blood Type Recheck Antibody Screen 12/18/17 12/18/17 02:51 02:51 WBC 10.3 RBC 5.35 Hgb 15.4 POC Hgb (Calc) Hct 45.4 POC Hct MCV 84.8 MCH 28.8 MCHC 34.0 RDW 13.2 Plt Count 363 MPV 7.2 Neut % (Auto) 60.6 Lymph % (Auto) 26.2 [place] % (Auto) 10.8 H Eos % (Auto) 1.8 Baso % (Auto) 0.6 Neut # (Auto) 6.2 Lymph # (Auto) 2.7 [place] # (Auto) 1.1 H Eos # (Auto) 0.2 Baso # (Auto) 0.1 WBC Differential . Differential Comment Auto diff final ESR PT INR APTT Fibrinogen POC Sodium Sodium 139 POC Potassium Potassium 4.2 POC Chloride Chloride 106 Carbon Dioxide 25.8 Anion Gap 7 POC BUN BUN 8 Creatinine 0.88 POC Creatinine Estimated GFR 88 L POC Glucose Random Glucose 98 Calcium 9.3 Magnesium 2.1 Total Bilirubin 0.4 AST 18 ALT 22 Alkaline Phosphatase 57 Total Creatine Kinase Troponin I Total Protein 7.8 Albumin 3.3 L Triglycerides 71 Cholesterol 131 LDL Cholesterol, Calc 75 HDL Cholesterol 42.0 Cholesterol/HDL Ratio 3.11 Vitamin B12 TSH Urine Color Urine Clarity Urine pH Ur Specific [place] Urine Protein Urine Glucose (UA) Urine Ketones Urine Occult Blood Urine Nitrate Urine Bilirubin Urine Urobilinogen Ur Leukocyte Esterase Urine RBC Micro UA Comment Urine Culture Comments Nasal Screen MRSA (PCR) Blood Type Blood Type Recheck Antibody Screen Review/Management - Diagnosis (1) Acute ischemic stroke Code(s): I63.9 - Cerebral infarction, unspecified Status: Acute Current Visit: Yes (2) Hypertension Code(s): I10 - Essential (primary) hypertension Status: Acute Current Visit : Yes (3) Diabetes mellitus Code(s): E11.9 - Type 2 diabetes mellitus without complications Status: Acute Current Visit: Yes - Review/Management Plan: s/p iv tpa Possible acute ischemic stroke versus resolving TIA to the vertebrobasilar system resulting in a cranial neuropathy and gait ataxia. The other considerations would include diabetic ischemic cranial neuropathy symptoms to be more persistent Recommendations neuro stable. ok for 5th floor with tele ok for p.t. and cardiac diet Echocardiogram, MRI MRA brain-pending cardiology eval- matt, loop recorder Fasting lipids-in range Blood pressure less than 180/100 all times No blood thinners for 24 hours status post TPA SCDs After CT brain scan performed over 24 hours is normal with restart aspirin with Plavix Long-term blood pressure, diabetes, lipid control Discussed above with patient. (2) Hypertension Qualifiers: Hypertension type: unspecified Qualified Code(s): I10 - Essential (primary) hypertension (3) Diabetes mellitus Qualifiers: Diabetes mellitus type: type 2 Diabetes mellitus complication status: without complication
[2017-12-18] MEDS: Chlorhexidine Gluconate 2% 1 Pack (2 Cloths) TOPICAL SCH (07:46)
--- NOTE | 2017-12-18 10:12 | CT ---
EXAM DATE: 12/18/2017 9:46 AM EDT AGE/SEX: 62 years / Male INDICATIONS: Follow up stroke alert. CLINICAL DATA: This is the patient's subsequent encounter. Patient reports that signs and symptoms h ave been present for 2 days and indicates a pain score of 0/10. MEDICAL/SURGICAL HISTORY: None. None. RADIATION DOSE: 39.03 CTDI (mGy) [place] [facility] [place]17[place]. . TECHNIQUE: CT of the head without contrast. Using automated exposure control and adjustment of the mA and/or kV according to patient size, radiation dose was kept as low as reasonably achievable to ob tain optimal diagnostic quality images. DICOM format image data is available electronically for revi ew and comparison. FINDINGS: Cerebrum: The ventricles are normal for age. No evidence of midline shift, mass lesion, hemorrhage or acute infarction. No extraaxial fluid collections are seen. Posterior Fossa: The cerebellum and brainstem are intact. The 4th ventricle is midline. The cerebe llopontine angle is unremarkable. Extracranial: The visualized portion of the orbits is intact. Skull: The calvaria is intact. No evidence of skull fracture. No new or significant changes compared to the prior examination. CONCLUSION: 1. Stable CT scan of the brain compared to the prior examination. 2. No new or acute intracranial hemorrhage. Electronically signed by: Marcelino Judge MD 12/18/2017 10:10 AM EDT
--- NOTE | 2017-12-18 10:58 | P.PNIM ---
Subjective Interval history: Patient had another episode of dizziness and diplopia while he was in a seating position, lasted about 5 minutes this morning, resolved after lying down, no other neurologic deficits. Denies any numbness or focal weakness. Physical Exam Vital signs: Vital Signs 12/17/17 14:21 12/17/17 14:27 12/17/17 16:00 Temperature 98.7 F Pulse Rate 89 82 Respiratory Rate 16 12 Blood Pressure 148/77 H 155/90 H 143/83 H Pulse Oximetry 99 97 12/17/17 17:00 12/17/17 18:00 12/17/17 18:17 Temperature Pulse Rate 78 Respiratory Rate 17 Blood Pressure 148/82 H 158/75 H 158/75 H Pulse Oximetry 97 12/17/17 18:47 12/17/17 19:00 12/17/17 19:17 Temperature Pulse Rate 82 82 80 Respiratory Rate 22 22 16 Blood Pressure 142/78 H 142/78 H 132/81 Pulse Oximetry 98 98 99 12/17/17 19:47 12/17/17 20:00 12/17/17 20:17 Temperature Pulse Rate 74 78 78 Respiratory Rate 12 20 23 Blood Pressure 137/81 142/76 H 142/76 H Pulse Oximetry 95 96 98 12/17/17 20:47 12/17/17 21:00 12/17/17 21:17 Temperature Pulse Rate 76 68 72 Respiratory Rate 22 20 24 Blood Pressure 133/74 137/72 137/72 Pulse Oximetry 99 98 99 12/17/17 21:47 12/17/17 22:00 12/17/17 22:17 Temperature Pulse Rate 76 62 66 Respiratory Rate 22 16 20 Blood Pressure 146/86 H 137/71 137/71 Pulse Oximetry 98 98 97 12/17/17 23:17 12/18/17 00:00 12/18/17 01:00 Temperature 98.9 F Pulse Rate 70 48 L 50 L Respiratory Rate 18 17 18 Blood Pressure 124/81 131/70 120/65 Pulse Oximetry 98 97 96 12/18/17 02:00 12/18/17 03:00 12/18/17 04:00 Temperature 98.6 F Pulse Rate 48 L 48 L 50 L Respiratory Rate 18 15 16 Blood Pressure 108/60 124/78 120/63 Pulse Oximetry 96 97 96 12/18/17 05:00 12/18/17 06:00 12/18/17 07:00 Temperature Pulse Rate 48 L 50 L 58 L Respiratory Rate 18 20 23 Blood Pressure 124/60 121/63 133/68 Pulse Oximetry 96 94 L 94 L Intake & Output 12/17/17 12/18/17 12/18/17 18:59 06:59 18:59 Intake Total 72 / 72 Output Total 1300 / 1300 Balance 72 / 72 -1300 / -1300 Weight 89.1 kg 89.1 kg Intake: IV 72 / 72 Activase Drip 72 MG In Bag/ 72 / 72 Syringe 1 EACH @ 72 mls/hr IV. SIG ONCE ONE Rx#:[id number] Output: Urine 1300 / 1300 Other: # Bowel Movements 0 Narrative: Not in distress, well-nourished, looks stated age Normal rate and regular rhythm, no murmurs gallops or rubs appreciated. Clear to auscultation and symmetric bilaterally, normal respiratory effort. Normal bowel sounds, soft, non-tender, nondistended, no guarding. Extremities without clubbing, cyanosis, or edema. No rash of generalized distribution. Skin is warm and dry. AAO x3, no cranial nerve deficits, moves all 4 extremities, no focal neurologic deficits Results - Labs CBC & Chem 7: 12/18/17 02:51 12/18/17 02:51 Laboratory Results - last 24 hr 12/17/17 12/17/17 12/17/17 14:01 14:01 14:01 WBC 10.4 RBC 5.17 Hgb 15.0 POC Hgb (Calc) 14.6 Hct 44.0 POC Hct 43.0 MCV 85.0 MCH 29.1 MCHC 34.2 RDW 13.1 Plt Count 408 MPV 7.0 Neut % (Auto) 68.1 Lymph % (Auto) 19.0 [place] % (Auto) 10.9 H Eos % (Auto) 1.5 Baso % (Auto) 0.5 Neut # (Auto) 7.0 Lymph # (Auto) 2.0 [place] # (Auto) 1.1 H Eos # (Auto) 0.2 Baso # (Auto) 0.1 WBC Differential . Differential Comment Auto diff final ESR PT 10.4 INR 1.0 APTT 27.7 Fibrinogen 434 H POC Sodium 136 L Sodium POC Potassium 4.3 Potassium POC Chloride 101 L Chloride Carbon Dioxide Anion Gap POC BUN 10 BUN Creatinine POC Creatinine 0.8 Estimated GFR POC Glucose 215 H Random Glucose Calcium Magnesium Total Bilirubin AST ALT Alkaline Phosphatase Total Creatine Kinase 105 Troponin I Less than 0.02 L Total Protein Albumin Triglycerides Cholesterol LDL Cholesterol, Calc HDL Cholesterol Cholesterol/HDL Ratio Vitamin B12 TSH Urine Color Urine Clarity Urine pH Ur Specific [place] Urine Protein Urine Glucose (UA) Urine Ketones Urine Occult Blood Urine Nitrate Urine Bilirubin Urine Urobilinogen Ur Leukocyte Esterase Urine RBC Micro UA Comment Urine Culture Comments Nasal Screen MRSA (PCR) Blood Type Blood Type Recheck Antibody Screen 12/17/17 12/17/17 12/17/17 14:01 14:01 14:01 WBC RBC Hgb POC Hgb (Calc) Hct POC Hct MCV MCH MCHC RDW Plt Count MPV Neut % (Auto) Lymph % (Auto) [place] % (Auto) Eos % (Auto) Baso % (Auto) Neut # (Auto) Lymph # (Auto) [place] # (Auto) Eos # (Auto) Baso # (Auto) WBC Differential Differential Comment ESR 37 H PT INR APTT Fibrinogen POC Sodium Sodium POC Potassium Potassium POC Chloride Chloride Carbon Dioxide Anion Gap POC BUN BUN Creatinine POC Creatinine Estimated GFR POC Glucose Random Glucose Calcium Magnesium Total Bilirubin AST ALT Alkaline Phosphatase Total Creatine Kinase Troponin I Total Protein Albumin Triglycerides Cholesterol LDL Cholesterol, Calc HDL Cholesterol Cholesterol/HDL Ratio Vitamin B12 698 TSH Urine Color Urine Clarity Urine pH Ur Specific [place] Urine Protein Urine Glucose (UA) Urine Ketones Urine Occult Blood Urine Nitrate Urine Bilirubin Urine Urobilinogen Ur Leukocyte Esterase Urine RBC Micro UA Comment Urine Culture Comments Nasal Screen MRSA (PCR) Blood Type A Positive Blood Type Recheck Antibody Screen Negative 12/17/17 12/17/17 12/17/17 14:01 18:00 23:00 WBC RBC Hgb POC Hgb (Calc) Hct POC Hct MCV MCH MCHC RDW Plt Count MPV Neut % (Auto) Lymph % (Auto) [place] % (Auto) Eos % (Auto) Baso % (Auto) Neut # (Auto) Lymph # (Auto) [place] # (Auto) Eos # (Auto) Baso # (Auto) WBC Differential Differential Comment ESR PT INR APTT Fibrinogen POC Sodium Sodium POC Potassium Potassium POC Chloride Chloride Carbon Dioxide Anion Gap POC BUN BUN Creatinine POC Creatinine Estimated GFR POC Glucose Random Glucose Calcium Magnesium Total Bilirubin AST ALT Alkaline Phosphatase Total Creatine Kinase Troponin I Total Protein Albumin Triglycerides Cholesterol LDL Cholesterol, Calc HDL Cholesterol Cholesterol/HDL Ratio Vitamin B12 TSH 0.978 Urine Color Yellow Urine Clarity Clear Urine pH 7.0 Ur Specific [place] 1.012 Urine Protein Negative Urine Glucose (UA) 50 Urine Ketones Negative Urine Occult Blood Small H Urine Nitrate Negative Urine Bilirubin Negative Urine Urobilinogen Less than 2 Ur Leukocyte Esterase Negative Urine RBC 1 Micro UA Comment Culture not ind Urine Culture Comments Culture not ind Nasal Screen MRSA (PCR) Not detected Blood Type Blood Type Recheck Antibody Screen 12/18/17 12/18/17 02:51 02:51 WBC 10.3 RBC 5.35 Hgb 15.4 POC Hgb (Calc) Hct 45.4 POC Hct MCV 84.8 MCH 28.8 MCHC 34.0 RDW 13.2 Plt Count 363 MPV 7.2 Neut % (Auto) 60.6 Lymph % (Auto) 26.2 [place] % (Auto) 10.8 H Eos % (Auto) 1.8 Baso % (Auto) 0.6 Neut # (Auto) 6.2 Lymph # (Auto) 2.7 [place] # (Auto) 1.1 H Eos # (Auto) 0.2 Baso # (Auto) 0.1 WBC Differential . Differential Comment Auto diff final ESR PT INR APTT Fibrinogen POC Sodium Sodium 139 POC Potassium Potassium 4.2 POC Chloride Chloride 106 Carbon Dioxide 25.8 Anion Gap 7 POC BUN BUN 8 Creatinine 0.88 POC Creatinine Estimated GFR 88 L POC Glucose Random Glucose 98 Calcium 9.3 Magnesium 2.1 Total Bilirubin 0.4 AST 18 ALT 22 Alkaline Phosphatase 57 Total Creatine Kinase Troponin I Total Protein 7.8 Albumin 3.3 L Triglycerides 71 Cholesterol 131 LDL Cholesterol, Calc 75 HDL Cholesterol 42.0 Cholesterol/HDL Ratio 3.11 Vitamin B12 TSH Urine Color Urine Clarity Urine pH Ur Specific [place] Urine Protein Urine Glucose (UA) Urine Ketones Urine Occult Blood Urine Nitrate Urine Bilirubin Urine Urobilinogen Ur Leukocyte Esterase Urine RBC Micro UA Comment Urine Culture Comments Nasal Screen MRSA (PCR) Blood Type Blood Type Recheck Antibody Screen - Imaging Impressions Chest X-Ray 12/17/17 14:11 CONCLUSION: Negative examination. Head CT 12/17/17 14:11 CONCLUSION: Slight chronic small vessel ischemic and atrophic changes. Head CT 12/18/17 14:32 CONCLUSION: 1. Stable CT scan of the brain compared to the prior examination. 2. No new or acute intracranial hemorrhage. Assessment and Plan - Plan This is a 62-year-old male with history of diabetes mellitus and department with dizziness, diplopia and blurring of vision Acute vertebrobasilar stroke versus TIA -Status post TPA administration, neurology following, repeat CT scan of the head unremarkable. Start aspirin and Plavix once neurology is okay. Follow-up echocardiogram, MRI of the brain, MRA of the neck and the brain. Cardiology has been consulted for JONATHAN and loop recorder. Possible JONATHAN tomorrow. 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 Uncontrolled hypertension-keep blood pressure less than 180/100, lisinopril Coronary artery disease-status post PCI/stent, cardiology following. Was in aspirin 325 mg daily Type 2 diabetes-sliding scale insulin, hold metformin. History of melanoma -Bilateral lower extremity SCDs. No chemical DVT prophylaxis for 24 hours, so once cleared by [id number] LINES: -Utilize peripheral IVs Transfer to [facility]
[2017-12-18] MEDS: Sod Chloride 0.9% Inj 1,000 ML IV.CONT SCH ×2 (11:29→15:53)
[2017-12-18] MEDS: Senna/Docusate Sodium 8.6/50 MG Tablet PO SCH ×2 (11:30→20:57)
[2017-12-18] MEDS: Famotidine PF Inj 20 MG/2 ML Vial IV.PUSH SCH ×2 (11:30→20:57)
--- NOTE | 2017-12-18 11:31 | MB ---
cc: César Calles MD DATE: 12/18/2017 REASON FOR CONSULTATION: Evaluation for possible JONATHAN and loop recorder. HISTORY OF PRESENT ILLNESS: Joseph Allen is a 62-year-old man who I follow as an outpatient. He started seeing me within the past year. He has known coronary artery disease. He had a right coronary artery stent in 07/2002. I last saw him in the office on 08/08/2017. He has not established with a primary care physician yet, even though I have requested him to. He did say he picked up a pack of the papers and was going to try to get into Dr. Luu, but had not had that completed yet. He comes in now because of neurological complaints. He complains of onset of blurry vision, diplopia and gait imbalance. He has had some symptoms on and off for the past few days, but it became severe. When he came in he got tPA. He felt better after the tPA. Then, today he is having some recurrence of symptoms, although his head CT is negative. I was requested to consider a JONATHAN and a loop recorder. The patient denies any angina. Denies any palpitations. Denies any shortness of breath. He has felt well except for these neurological complaints. His cardiac risk factors include hypertension, former smoking and prediabetes. He is physically quite active and has no symptoms with exertion. PAST MEDICAL HISTORY: Includes coronary artery disease, type 2 diabetes, diverticulosis, erectile dysfunction, hyperlipidemia, hypertension, insomnia, and history of melanoma of the left neck and shoulder. PAST SURGICAL HISTORY: Includes cervical laminectomy and colon resection for diverticulosis, kidney stone removal with stent placement, right coronary artery stents July 2002, right shoulder surgery which was for a rotator cuff injury and right total knee replacement. MEDICATIONS: He was prescribed atorvastatin when I saw him in August. He took it for 3 months and stopped it. He said he did realize he was supposed to have stayed on it which was my intent. He has also been on aspirin, coenzyme Q10, lisinopril 5 mg, metformin 500 mg, vitamin D. ALLERGIES: INCLUDE X-RAY DYE CAUSING HIVES. FAMILY HISTORY: Negative for heart disease. SOCIAL HISTORY: Smoked from age 14 to age 46. He was about 1 pack per day smoker. Drinks occasional beer. REVIEW OF SYSTEMS: Otherwise negative or noncontributory except as mentioned in the History Of Present Illness. PHYSICAL EXAMINATION: GENERAL: Well-developed, well-nourished, robust-appearing man, in no acute distress. VITAL SIGNS: He has mild sinus bradycardia, around 50. Blood pressures have been low to low-normal. HEENT: Unremarkable. NECK: No JVD. No bruits. CHEST: Clear to auscultation. CARDIOVASCULAR: Normal first and second heart sounds, regular rate and rhythm. No murmurs, no gallops. ABDOMEN: Soft, nontender. No masses or organomegaly. EXTREMITIES: No clubbing, cyanosis or edema. NEUROLOGIC: He is alert and oriented. LABORATORY DATA: Initial troponin was normal. Normal hematocrit. Sedimentation rate is elevated at 37. Creatinine is normal at 0.88 His EKG from yesterday shows normal sinus rhythm with no acute ST-T wave changes. IMPRESSION: Puzzling neurological event. Dr. Meadows is on the case. He is requesting a JONATHAN and a loop recorder, looking for evidence for embolic strokes. PLAN: I explained this procedure to the patient and I have a call out to Dr. Meadows. I tentatively plan to try to get these done tomorrow morning unless Dr. Meadows thinks we should go different way. MD PIA Arboleda/YAZAN , 11:06 AM , 11:29 AM
--- NOTE | 2017-12-18 15:13 | ECG ---
Date Performed: 12/17/2017 Time Performed: 14:02:18 PTAGE: 62 years EKG: Sinus rhythm ABNORMAL ECG NO PREVIOUS TRACING DOCTOR: Hubert Dhillon Interpretating Date/Time 12/18/2017 15:11:59
--- NOTE | 2017-12-18 17:57 | ECHRPT ---
Indication: CVA/TIA CONCLUSIONS The left ventricular systolic function is normal with an estimated ejection fraction in the range of 60-65%. Mild concentric left ventricular hypertrophy. Khxyk-[id number] mitral valve regurgitation. There is trace tricuspid valve regurgitation. BP: / HR: Rhythm: Sinus MEASUREMENTS (Male / Female) Normal Values Technical Quality:Fair 2D ECHO LV Diastolic Diameter PLAX 4.3 cm 4.2 - 5.9 / 3.9 - 5.3 cm LV Systolic Diameter PLAX 2.6 cm IVS Diastolic Thickness 1.2 cm 0.6 - 1.0 / 0.6 - 0.9 cm LVPW Diastolic Thickness 1.2 cm 0.6 - 1.0 / 0.6 - 0.9 cm LV Relative Wall Thickness 0.5 RV Internal Dim ED PLAX 2.1 cm LVOT Diameter 2.4 cm Aortic Root Diameter 3.5 cm LA Systolic Diameter LX 2.9 cm 3.0 - 4.0 / 2.7 - 3.8 cm M-MODE AV Cusp Separation MM 1.9 cm DOPPLER AV Peak Velocity 99.3 cm/s AV Peak Gradient 3.9 mmHg AV Mean Gradient 2.0 mmHg AV Velocity Time Integral 16.5 cm LVOT Peak Velocity 59.4 cm/s LVOT Peak Gradient 1.4 mmHg LVOT Velocity Time Integral 12.2 cm AV Area Cont Eq vti 3.3 cm AV Area Cont Eq pk 2.7 cm Mitral E Point Velocity 61.9 cm/s Mitral A Point Velocity 50.7 cm/s Mitral E to A Ratio 1.2 LV E' Lateral Velocity 13.5 cm/s Mitral E to LV E' Lateral Ratio 4.6 LV E' Septal Velocity 13.1 cm/s Mitral E to LV E' Septal Ratio 4.7 Right Atrial Pressure 10.0 mmHg PV Peak Velocity 80.5 cm/s PV Peak Gradient 2.6 mmHg FINDINGS LEFT VENTRICLE Normal left ventricular size. Mild concentric left ventricular hypertrophy. The left ventricular systolic function is normal with an estimated ejection fraction in the range of 60-65%. RIGHT VENTRICLE Grossly normal LEFT ATRIUM The left atrial size is normal. RIGHT ATRIUM The right atrial size is normal. ATRIAL SEPTUM No atrial level shunt is demonstrated by color flow Doppler interrogation. AORTA The aortic root and proximal ascending aorta are normal in size on limited imaging. MITRAL VALVE Structurally normal mitral valve. No mitral valve stenosis. [id number] mitral valve regurgitation. AORTIC VALVE Grossly normal aortic valve. No aortic valve stenosis or regurgitation. TRICUSPID VALVE Grossly normal There is trace tricuspid valve regurgitation. PULMONARY VALVE No pulmonary valve regurgitation or stenosis. VESSELS The inferior vena cava is normal in size. PERICARDIUM No pericardial effusion. Jeison Lovell DO (Electronically Signed) Final Date:18 December 2017 17:56
[2017-12-18 18:43] LABS: Hemoglobin A1c 6.8 % (4.3-6.0)
[2017-12-19] MEDS: Acetaminophen 325 MG Tablet PO PRN (01:31)
[2017-12-19] MEDS: Chlorhexidine Gluconate 2% 1 Pack (2 Cloths) TOPICAL SCH (06:00)
[2017-12-19 08:17] VITALS: O2SAT 97
--- NOTE | 2017-12-19 09:37 | P.PNNEU ---
Subjective Subjective Comments: had a couple of episodes of dizziness and visual scotomas has had mild vertigo type sensation over past couple of weeks No headache No chest pain No dyspnea Active Medications: Active Medications Acetaminophen (Tylenol) 650 mg PO Q6H PRN PRN Reason: PAIN 1-10 AND/OR FEVER >101F Last Admin: 12/19/17 01:31 Dose: 650 mg Al Hydroxide/Mg Hydroxide (Milk Of Magnesia Liq) 30 ml PO Q12H PRN PRN Reason: Mild Constipation Albuterol (Duoneb Neb (Prn)) 1 ampul NEB Q2HR NEB PRN PRN Reason: WHEEZING Bisacodyl (Dulcolax Supp) 10 mg RECTAL DAILY PRN PRN Reason: SEVERE CONSITIPATION Chlorhexidine Gluconate (Chlorhexidine 2% Cloth) 3 pack TOPICAL DAILY@0400 [facility] Stop: 12/23/17 03:59 Last Admin: 12/19/17 06:00 Dose: 3 pack Chlorhexidine Gluconate (Chlorhexidine 2% Cloth) 3 pack TOPICAL DAILY@0400 PRN PRN Reason: Extra cloth needed Stop: 12/23/17 03:59 Famotidine (Pepcid Pf Inj) 20 mg IV.PUSH Q12HR [facility] Last Admin: 12/18/17 20:57 Dose: 20 mg Sodium Chloride (Ns Inj) 1,000 mls @ 84 mls/hr IV.CONT .[id number] [facility] Last Admin: 12/18/17 15:53 Dose: 84 mls/hr Lactulose (Lactulose Liq) 30 ml PO DAILY PRN PRN Reason: SEVERE CONSITIPATION Senna/Docusate Sodium (Faye-Colace) 1 tab PO BID [facility] Last Admin: 12/18/17 20:57 Dose: 1 tab Sennosides (Senokot) 17.2 mg PO Q12H PRN PRN Reason: Moderate Constipation Sodium Chloride (Ns Flush) 2 ml IV.FLUSH BID [facility] Last Admin: 12/18/17 20:58 Dose: 2 ml Sodium Chloride (Ns Flush) 2 ml IV.FLUSH PRN PRN PRN Reason: FLUSH AFTER USING IV ACCESS Allergies/Adverse Reactions: Allergies Allergy/AdvReac Type Severity Reaction Status Date / Time iodine Allergy Severe Anaphylaxis Verified 12/17/17 14:21 naproxen Allergy Severe Anaphylaxis Verified 12/17/17 14:21 potassium iodide Allergy Severe Anaphylaxis Verified 12/17/17 14:21 povidone-iodine Allergy Severe Anaphylaxis Verified 12/17/17 14:21 shellfish derived Allergy Severe Anaphylaxis Verified 12/17/17 14:21 sodium iodide Allergy Severe Anaphylaxis Verified 12/17/17 14:21 sodium iodide Allergy Severe Anaphylaxis Verified 12/17/17 14:21 Review of Systems All other systems reviewed negative except as stated in HPI Physical Exam Vital signs: Vital Signs 12/18/17 10:00 12/18/17 11:00 12/18/17 12:00 Temperature 97.9 F Pulse Rate 66 74 70 Respiratory Rate 12 23 28 H Blood Pressure 133/63 144/77 H 123/65 Pulse Oximetry 96 97 98 12/18/17 13:00 12/18/17 14:00 12/18/17 15:00 Temperature Pulse Rate 72 76 74 Respiratory Rate 23 28 H 22 Blood Pressure 153/87 H 135/67 144/80 H Pulse Oximetry 98 97 98 12/18/17 16:00 12/18/17 17:00 12/18/17 18:00 Temperature 98.3 F Pulse Rate 70 76 70 Respiratory Rate 28 H 24 19 Blood Pressure 145/76 H 137/87 130/71 Pulse Oximetry 98 98 98 12/18/17 20:00 12/19/17 00:00 12/19/17 03:00 Temperature 98.8 F 98.6 F Pulse Rate 72 68 51 L Respiratory Rate 24 18 Blood Pressure 135/77 155/66 H Pulse Oximetry 96 97 12/19/17 04:00 12/19/17 08:16 Temperature 98.5 F Pulse Rate 48 L Respiratory Rate 18 Blood Pressure 129/62 Pulse Oximetry 95 97 Intake & Output 12/18/17 12/19/17 12/19/17 18:59 06:59 18:59 Intake Total 600 / 600 360 / 360 Output Total 1100 / 1100 1600 / 1600 Balance -500 / -500 -1240 / -1240 Weight 88.8 kg Intake: Oral 600 / 600 360 / 360 Output: Urine 1100 / 1100 1600 / 1600 Other: Date of Last Bowel Movement 12/18/17 12/18/17 # Bowel Movements 1 0 - Constitutional no acute distress, mild distress - Routine HEENT Exam Head: Present: normocephalic, atraumatic Eye: Present: EOMI - Routine Neck Exam Present: supple, full ROM - Routine Respiratory Exam Present: accessory muscle use - Routine Cardiovascular Exam Present: RRR - Routine Neurological Exam Present: alert, oriented X3 ox 3, looks well, articulate, follows, +head thrust test to the left, vff, ou 3- 2mm, no drift Objective Laboratory Results - last 24 hr 12/17/17 14:01 Hemoglobin A1c 6.8 H Review/Management - Diagnosis (1) Acute ischemic stroke Code(s): I63.9 - Cerebral infarction, unspecified Status: Acute Current Visit: Yes (2) Hypertension Code(s): I10 - Essential (primary) hypertension Status: Acute Current Visit : Yes (3) Diabetes mellitus Code(s): E11.9 - Type 2 diabetes mellitus without complications Status: Acute Current Visit: Yes - Review/Management Plan: s/p iv tpa Possible acute ischemic stroke versus resolving TIA to the vertebrobasilar system resulting in a cranial neuropathy and gait ataxia. recurrent visual scotomas, dizziness. + head thrust test today Recommendations mri still not done?? suspect more of a peripheral vestibulopathy start plavix 75mg meclizine prn outpatient vestibular therapy ok to d/c today and outpatient f/u (2) Hypertension Qualifiers: Hypertension type: unspecified Qualified Code(s): I10 - Essential (primary) hypertension (3) Diabetes mellitus Qualifiers: Diabetes mellitus type: type 2 Diabetes mellitus complication status: without complication
[2017-12-19 10:03] VITALS: TEMP 98.6
[2017-12-19] MEDS: Sod Chloride 0.9% Inj 1,000 ML IV.CONT SCH (10:19)
[2017-12-19] MEDS: Senna/Docusate Sodium 8.6/50 MG Tablet PO SCH (10:20)
[2017-12-19] MEDS: Famotidine PF Inj 20 MG/2 ML Vial IV.PUSH SCH (10:20)
--- NOTE | 2017-12-19 11:32 | P.DS ---
Date of admission: 12/17/17 16:00 Primary care physician: UNKNOWN Anticipated date of discharge: 12/19/17 Brief History from admission: Patient is a 62-year-old male with past medical history significant for coronary artery disease, cervical vertebral fusion, type 2 diabetes, hypertension, history of melanoma, past smoking. He developed sudden onset blurry vision, diplopia and dizziness. Had several episodes of similar symptoms the preceding week which lasted several minutes. This time symptoms persisted and patient presented to the ED. Initially blood pressure was 170/ 90. CT scan showed no acute findings. Dr. Meadows was consulted from neurology. Patient was deemed a good candidate for TPA. Patient received IV TPA with resolution of symptoms post. Critical care medicine was consulted to evaluate and admit the patient. I evaluated the patient in the ED. He does not appear to be in any discomfort lying flat on ER gurney. His symptoms consistent with posterior circulation/ vertebrobasilar CVA DS: Diagnosis - Discharge Diagnosis (1) Peripheral vestibulopathy Status: Acute (2) Hypertension Status: Acute (3) Diabetes mellitus Status: Acute DS: Medications - Discharge Medications Prescriptions: clopidogrel [Plavix] 75 mg PO DAILY #30 tab meclizine 25 mg PO Q8HR PRN #30 tab PRN Reason: Dizziness DS: Summary Hospital Course: This is a 62-year-old male with history of diabetes mellitus and department with dizziness, diplopia and blurring of vision. Upon admission, there was consideration for acute vertebrobasilar stroke versus TIA. Patient Status post TPA administration, neurology consulted, repeat CT scan of the head unremarkable. Neurology wanted an echocardiogram or a transesophageal echocardiogram but patient refused. Consideration for peripheral vestibulopathy is stronger now compared to stroke per neurology. Start Plavix and meclizine per neurology. Needs outpatient vestibular therapy. If MRI is negative, patient will be discharged home today to follow-up with his primary care physician and neurology in a few weeks. He will continue aspirin and lisinopril. Patient's lipid panel is within range,Hemoglobin A1c 6.8. Patient also seems to be noncompliant, he expressed that he does not want to take Plavix. - Time Spent with Patient Total time spent providing and/or coordinating discharge services: Greater than 30 minutes - Quality: Stroke Last date observed well: 12/17/17 Last time observed well: 12:00 Exam Vital signs: Vital Signs 12/18/17 12:00 12/18/17 13:00 12/18/17 14:00 Temperature 97.9 F Pulse Rate 70 72 76 Respiratory Rate 28 H 23 28 H Blood Pressure 123/65 153/87 H 135/67 Pulse Oximetry 98 98 97 12/18/17 15:00 12/18/17 16:00 12/18/17 17:00 Temperature 98.3 F Pulse Rate 74 70 76 Respiratory Rate 22 28 H 24 Blood Pressure 144/80 H 145/76 H 137/87 Pulse Oximetry 98 98 98 12/18/17 18:00 12/18/17 20:00 12/19/17 00:00 Temperature 98.8 F 98.6 F Pulse Rate 70 72 68 Respiratory Rate 19 24 18 Blood Pressure 130/71 135/77 155/66 H Pulse Oximetry 98 96 97 12/19/17 03:00 12/19/17 04:00 12/19/17 08:00 Temperature 98.5 F 98.6 F Pulse Rate 51 L 48 L 70 Respiratory Rate 18 24 Blood Pressure 129/62 144/89 H Pulse Oximetry 95 97 12/19/17 08:16 12/19/17 09:00 Temperature Pulse Rate 70 Respiratory Rate Blood Pressure Pulse Oximetry 97 Intake & Output 12/18/17 12/19/17 12/19/17 18:59 06:59 18:59 Intake Total 600 / 600 1360 / 1360 Output Total 1100 / 1100 1600 / 1600 Balance -500 / -500 -240 / -240 Weight 88.8 kg Intake: IV 1000 / 1000 NS Inj 1,000 ML @ 84 mls/hr IV. 1000 / 1000 CONT .[id number] [facility] Rx#:[id number] Oral 600 / 600 360 / 360 Output: Urine 1100 / 1100 1600 / 1600 Other: Date of Last Bowel Movement 12/18/17 12/18/17 # Bowel Movements 1 0 Narrative: S> still having episodes of dizziness especially when upright or lying down and he will get up. No focal weakness or numbness. O> Not in distress, well-nourished, looks stated age PERRL, pink conjunctiva without injection, anicteric Nose without bleeding, airway patent, oropharynx clear Supple neck, no masses or thyromegaly, trachea midline Normal rate and regular rhythm, no murmurs gallops or rubs appreciated. Clear to auscultation and symmetric bilaterally, normal respiratory effort. Normal bowel sounds, soft, non-tender, nondistended, no guarding. Extremities without clubbing, cyanosis, or edema. No rash of generalized distribution. Skin is warm and dry. AAO x3, no cranial nerve deficits, moves all 4 extremities, no focal neurologic deficits Results Procedures completed during hospitalization: none Labs on day of discharge: Labs from last 24 hours 12/17/17 14:01 Hemoglobin A1c 6.8 H - Impressions ITS Impressions Chest X-Ray 12/17/17 14:11 CONCLUSION: Negative examination. Head CT 12/18/17 14:32 CONCLUSION: 1. Stable CT scan of the brain compared to the prior examination. 2. No new or acute intracranial hemorrhage. Discharge Plan - Discharge Disposition Patient Disposition: 01 Discharge Home - Discharge Condition Condition: Good - Discharge Order Discharge Orders: Discharge Order (Routine); Ordered 12/19/17 Ordered By: Linda López - Discharge Details Anticipated Discharge Date: 12/19/17 Discharge Comment: d/c if MRI brain is negative - Physicians Team Primary Care Provider: UNKNOWN, Attending Provider: Linda López Other Providers: Pancho Meadows MD ; César Calles MD ; [employer], Insurance
[2017-12-19] MEDS ORDERED: Gadobutrol PF 10 MMOL/10 ML Vial (for RAD) IV.SIG ONE (11:56)
--- NOTE | 2017-12-19 12:13 | MR ---
EXAM DATE: 12/19/2017 11:57 AM EDT AGE/SEX: 62 years / Male INDICATIONS: CVA. Double vision. CLINICAL DATA: This is the patient's initial encounter. Patient reports that signs and symptoms have been present for 1 day and indicates a pain score of 0/10. MEDICAL/SURGICAL HISTORY: Hypertension. Melanoma. Colon resection. Fusion, cervical. Right kn ee, right shoulder, left ankle and hernia repair. COMPARISON: [facility] [place] HEAD W/O CONTRAST, 12/18/2017. . TECHNIQUE: Multiplanar, multisequence examination of the brain was performed without contrast. FINDINGS: The ventricular system is within normal limits. On the FLAIR weighted images there are several small punctate areas of increased signal consistent with chronic small vessel ischemic change. There is no acute hemorrhage, mass or evidence of infarction. There is mild atrophic change with sulcal and ventr icular prominence. There is no restricted diffusion on the echoplanar weighted images. The pituitary region is unremarkable. The orbits and paranasal sinuses are intact. CONCLUSION: 1. No acute hemorrhage, mass or infarction. 2. Mild atrophy and chronic small vessel ischemic change. Electronically signed by: Albert De Anda MD 12/19/2017 12:12 PM EDT
--- NOTE | 2017-12-19 13:27 | MR ---
EXAM DATE: 12/19/2017 12:27 PM EDT AGE/SEX: 62 years / Male INDICATIONS: Stroke. Double vision. CLINICAL DATA: This is the patient's initial encounter. Patient reports that signs and symptoms have been present for 1 day and indicates a pain score of 0/10. MEDICAL/SURGICAL HISTORY: Hypertension. Melanoma. Colon resection. Fusion, cervical. Right kn ee, right shoulder, left ankle and hernia repair. COMPARISON: [facility] – [place], MRA HEAD W/O CONTRAST, 12/19/2017. . TECHNIQUE: 10 ml Gadavist (gadobutrol) contrast infused MRA (single exam dose) of the extracranial circulation was performed using a neurovascular coil. Postprocessing was performed, including rotati ng sub-volume maximum intensity projections of each carotid artery, rotating full-volume maximum inte nsity projections of both carotid arteries, sagittal and coronal sliding thin-slab reformations of ea ch carotid artery, and left oblique sliding thin-slab reformation through the aortic arch to include the origin of the arch branch vessels. FINDINGS: Aortic Arch : There is a three-vessel origin of the great vessels from the aorta. No evidence of o stial narrowing. Right Carotid : The common carotid artery is intact. The carotid bulb has a normal configuration wi thout ulceration or narrowing. The internal carotid artery lumen is smooth without stenosis. The ex ternal carotid artery is intact. Left Carotid : The common carotid artery is intact. The carotid bulb has a normal configuration wit hout ulceration or narrowing. The internal carotid artery lumen is smooth without stenosis. The ext ernal carotid artery is intact. Vertebrals : The vertebral arteries are asymmetric in diameter. The right vertebral artery is domina nt. No stenotic lesions are seen. CONCLUSION: 1. No evidence of significant steno-occlusive disease or intraluminal thrombus in the extracranial c arotid and vertebral arteries. 2. No evidence of significant atherosclerotic vascular disease. 3. Dominant right vertebral artery. Percent stenosis is calculated using the diameter of the stenotic region over the diameter of the nor mal distal internal carotid artery Electronically signed by: Eliel Nicholson MD 12/19/2017 1:26 PM EDT
[2017-12-19 14:18] VITALS: BP 140/78; PULSE 78; RESP 17
--- NOTE | 2017-12-19 14:31 | MR ---
EXAM DATE: 12/19/2017 11:55 AM EDT AGE/SEX: 62 years / Male INDICATIONS: CVA. Double vision. CLINICAL DATA: This is the patient's initial encounter. Patient reports that signs and symptoms have been present for 1 day and indicates a pain score of 0/10. MEDICAL/SURGICAL HISTORY: Hypertension. Melanoma. Colon resection. Fusion, cervical. Right kn ee, right shoulder, left ankle and hernia repair. COMPARISON: No prior exams available for comparison. TECHNIQUE: 3D [id number] MRA was performed. Source images, multiplanar STS MIP, and 3D volum e MIP reconstructions were reviewed. FINDINGS: There is excellent visualization of the major intracranial arteries out to the second-order branch ve ssels. The patient has a dominant right A1 segment with diffusely small caliber left A1 segment. 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 It projects cephalad and tow ards the patient's left. It measures 3 x 2 mm. There is no evidence for vessel truncation or stenosis , and no evidence for vascular malformation. CONCLUSION: 1. 3 x 2 mm ACOM aneurysm. Electronically signed by: Catarino Lopez MD 12/19/2017 2:30 PM EDT
== END 2017-12-19 16:34 | disposition home or self-care (01) ==
LOC: NEPC 13:58 → NEDA 16:00 → N03 18:08
PROVIDERS: ADMIT Hospitalist; ATTEND Hospitalist